=== PATIENT | female | born 1940 | race Caucasian/White ===

== ENCOUNTER → 2017-06-26 | Day surgery (SDC) | payer OTHER ==
[~2017-06-26] VITALS: Ht 154.9 cm; Wt 63.0 kg
[~2017-06-26] MED LIST: 8 HOUR650 MG PO; ADVAIR 100-501 EACH INH; AMOX-CLAV 875-1 EACH PO; BRIMONIDINE TART5 M2 OU; COMBIVENT RESPIM4 GM INH; FUROSEMIDE20 M1 PO; IPRAT-ALBUT 0.5-3 ML INH; MATZIM LA360 M1 PO; VITAMIN B-121000 MC3 PO; VITAMIN D2000 UNIT PO; XARELTO20 M2 PO
--- NOTE | 2017-06-26 12:41 | RADIOLOGY REPORT ---
EXAMINATION: XR PORTABLE CHEST CLINICAL INFORMATION: Additional bronchoscopy. COMPARISON: 06/19/2017 TECHNIQUE: Portable frontal view of the chest was obtained. FINDINGS: Cardiac leads overlie the chest. Clip is noted overlying the previously seen left midlung pulmonary nodule. The nodule is poorly defined on the current study due to overlapping structures. The lungs are well expanded. No new consolidation. No edema or effusion. No pneumothorax. The cardiomediastinal silhouette remains mildly prominent, with a calcified aorta. IMPRESSION: Clip overlies the left midlung pulmonary nodule. No acute pulmonary finding.
--- NOTE | 2017-06-26 17:13 | Operative Report ---
Operative/Inv Procedure Report Surgery Date: 06/26/17 Name of Procedure: Navigational bronchoscopy with fine needle aspirate brushings forceps biopsy bronchoalveolar lavage and fiducial placement Pre-Operative Diagnosis: Left upper lobe lung nodule Post-Operative Diagnosis: Same Estimated Blood Loss: none Surgeon/Bakery Assistant: Po Noonan MD,James Amato Anesthesia: general endotracheal tube Operative/Procedure Note Note: After placement of monitoring lines and induction of general anesthesia survey bronchoscopy was done. There was thick inspissated mucus which was tenacious and a considerable amount of time was spent clearing the airways of this mucus. The navigational system was then registered. The guider catheter was advanced to the lingular segment of the left upper lobe. Multiple passing's of the needle along with the brush were made and the specimens were sent for cytology. Forceps biopsies were taken and were processed in formalin. A bronchoalveolar lavage was done and the fluid was sent for both culture and for cytology. At the end of the procedure a gold fiducial marker was placed adjacent to the nodule for future identification. The airway was inspected and there was no evidence of bleeding. The patient tolerated the procedure well and was brought to recovery room awake and extubated in stable condition. CC: Navarro WINSTON,Alvin Amato MD,Elvis
--- NOTE | 2017-06-27 14:31 | RADIOLOGY REPORT ---
EXAMINATION:\H\ \N\XR CHEST CLINICAL INFORMATION: Left-sided bronchoscopy. COMPARISON: Chest radiograph 06/19/2017 TECHNIQUE: Intraoperative fluoroscopic spot views were provided to Dr. Fontenot to aid in left-sided bronchoscopy. FLUOROSCOPY TIME: 7 minutes 20 seconds TOTAL NUMBER OF IMAGES: 5 FINDINGS: A bronchoscope is identified within a lingular bronchus and a biopsy device is seen deployed multiple times within the mass in the lingula. Refer to operative notes for details. IMPRESSION: Lingula mass biopsy. Refer to operative notes for details.
== END ==
LOC: STS 02:28
DX: R91.1 Solitary pulmonary nodule (principal); J44.9 Chronic obstructive pulmonary disease, unspecified; F17.200 Nicotine dependence, unspecified, uncomplicated; I48.91 Unspecified atrial fibrillation; K21.9 Gastro-esophageal reflux disease without esophagitis; Z79.01 Long term (current) use of anticoagulants
CPT/HCPCS: 1263; 87070; 87075; 87205; 71045; 88305; C9399; J2250

== ENCOUNTER 2017-06-29 18:15 | Inpatient (IN) | payer OTHER ==
[~2017-06-29] VITALS: Ht 154.9 cm; Wt 65.5 kg
--- NOTE | 2017-06-29 18:53 | RADIOLOGY REPORT ---
EXAMINATION: XR PORTABLE CHEST CLINICAL INFORMATION: Shortness of breath, chest pain COMPARISON: 06/26/17 TECHNIQUE: Portable frontal view of the chest was obtained. FINDINGS: Lordotic projection. There is tortuosity of the aorta with calcification in the region of the aortic arch. No change in the right hilum. No new abnormality in the right lung or left upper lung. There is significant opacity occupying the left lower chest with obscuration of the left side of the diaphragm and left hemidiaphragm. The small metallic marker superimposes over the left lower chest. No pneumothorax IMPRESSION: Worsening aeration left lower chest with a small fiducial or tissue marker. Possibilities include pneumonia, or hemorrhage. Follow-up recommended.
--- NOTE | 2017-06-29 19:12 | ED GENERAL ADULT ---
History of Present Illness General Chief Complaint: General Adult Stated Complaint: HIGH FEVER,BODY ACHES,SOB Source: patient, family, old records Exam Limitations: no limitations Reconcile Medications Acetaminophen (8 Hour) 650 MG TABLET.ER 1 TAB PO PRN PAIN (Reported) Amoxicillin/Clavulanate Potass (Amox-Clav 875-125 MG Tablet) 875 MG-125 MG TABLET 1 TAB PO BID ABX (Reported) Brimonidine Tartrate 0.2 % DROPS 1 DROP OU BID BOTH EYES (Reported) Cholecalciferol (Vitamin D3) (Vitamin D) 2,000 UNIT CAPSULE 1 CAP PO DAILY SUPPLEMENT (Reported) Cyanocobalamin (Vitamin B-12) 1,000 MCG TABLET 1 TAB PO DAILY SUPPLEMENT ( Reported) Diltiazem HCl (Matzim LA) 360 MG TAB.ER.24H 1 TAB PO DAILY HEART/BP (Reported ) Fluticasone-Salmeterol (Advair 100-50 Diskus) 100 MCG-50 MCG/DOSE BLST.W.DEV 1 PUF INH BID COPD (Reported) Furosemide 20 MG TABLET 1 TAB PO DAILY DIURETIC (Reported) Ipratropium/Albuterol Sulfate (Iprat-Albut 0.5-3(2.5) MG/3 Ml) 0.5 MG-3 MG (2.5 MG BASE)/3 ML AMPUL.NEB 1 VIAL INH 4XDAILY COPD (Reported) Ipratropium/Albuterol Sulfate (Combivent Respimat Inhal Perry) 20 MCG-100 MCG/ ACTUATION MIST.INHAL 1 PUFF INH BID COPD (Reported) Rivaroxaban (Xarelto) 20 MG TABLET 1 TAB PO DAILY BLOOD THINNER (Reported) with food Triage Note: PT TO ED FOR C/C OF BODY ACHES, PRODUCTIVE COUGH, CHILLS, FEVERS (SUBJECTIVE 103 AT HOME). HAD A BRONCHOSCOPY ON SUNDAY HERE. PT REPORTS FEELING TIRED AND WEAK. PT NOTED TO BE PALE IN TRIAGE. DENIES SOB. Triage Nurses Notes Reviewed? yes Onset: Gradual Duration: day(s): Timing: recent history Injury Environment: home Severity: moderate HPI: 77yo female with hx of COPD, a fib presents to ED complaining of fevers, myalgias, malaise x yesterday. Patient recently had bronchoscopy with Dr. Fontenot on 06/26. Patient called her specialist who prescribed her Augment which she started this AM, has taken one dose. Patient has been taking tyelnol which is effective only temporarily. She reports left sided lateral ribcage pain since broncoscopy which her doctor told her was normal following the procedure. Patient reports a history of PNA in the past. Patient reports hemoptysis since her bronchoscopy. She denies dyspnea, sick contact, urinary symptoms, rash. (Nicole Valadez) Vital Signs & Intake/Output Vital Signs & Intake/Output Vital Signs Date Time Temp Pulse Resp B/P B/P Pulse O2 O2 Flow FiO2 Mean Ox Delivery Rate 06/29 2133 98.2 68 22 125/56 89 Room Air 06/29 1957 Room Air 06/29 1822 98.9 91 15 108/60 90 Room Air Room Air Allergies Coded Allergies: erythromycin base (SEVERE GI UPSET AND BECAME PHYSICALLY ILL 06/29/17) (Preethi WINSTON,Sharif Frankel) Past History Travel History Traveled to [place] past 21 day No Medical History Any Pertinent Medical History? see below for history Cardiovascular: AFIB, CHF Respiratory: COPD Surgical History Surgical History: non-contributory Psychosocial History What is your primary language Japanese Tobacco Use: Quit <30 days ago ETOH Use: occasional use Illicit Drug Use: denies illicit drug use Family History Hx Contributory? No (Nicole Valadez) Review of Systems Review of Systems Constitutional: Reports: see HPI. EENTM: Reports: no symptoms. Respiratory: Reports: see HPI. Cardiovascular: Reports: see HPI. GI: Reports: no symptoms. Genitourinary: Reports: no symptoms. Musculoskeletal: Reports: see HPI. Skin: Reports: no symptoms. Neurological/Psychological: Reports: no symptoms. Hematologic/Endocrine: Reports: no symptoms. Immunologic/Allergic: Reports: no symptoms. All Other Systems: Reviewed and Negative (Nicole Valadez) Physical Exam Physical Exam General Appearance: well developed/nourished, no apparent distress, alert, awake Head: atraumatic, normal appearance Eyes: Bilateral: normal appearance. Ears, Nose, Throat: hearing grossly normal Neck: normal inspection, supple, full range of motion Respiratory: no respiratory distress, bilateral wheezes lung bases Cardiovascular: regular rate/rhythm Peripheral Pulses: 2+ radial (R), 2+ radial (L) Gastrointestinal: normal bowel sounds, soft, non-tender, no organomegaly Back: normal inspection, normal range of motion Extremities: normal inspection, normal range of motion Neurologic/Psych: awake, alert, oriented x 3 Skin: intact, normal color, warm/dry Core Measures ACS in differential dx? Yes CVA/TIA Diagnosis: No Sepsis Present: No Sepsis Focused Exam Completed? No (Jazmyne WHITE,Nicole Enrique) Progress Differential Diagnoses I considered the following diagnoses in my evaluation of the patient: [pneumonia , sepsis, UTI, PE, pulmonary trauma/hemorrhage] Plan of Care: Orders Procedure Date/time Status Nothing by Mouth 06/30 B Active Saline Lock 06/29 2248 Active Misc Message 06/29 2248 Active ED Holding Orders 06/29 2248 Active Admit to inpatient 06/29 2248 Active Vital Signs 06/29 2248 Active Code Status 06/29 2248 Active EKG 06/30 2119 Active BLOOD CULTURE 06/30 1823 Active URINALYSIS 06/30 1823 Active TROPONIN LEVEL 06/29 182 Complete LACTIC ACID 06/29 182 Complete COMPREHENSIVE METABOLIC PANEL 06/29 182 Complete CBC WITHOUT DIFFERENTIAL 06/30 1823 Complete EKG 06/29 181 Active Current Medications Sig/Mal Start time Last Medication Dose Stop Time Status Admin Azithromycin 500 MG ONCE ONE 06/29 2300 UNVr (Zithromax) 06/29 2359 Sodium Chloride 250 ML (Normal Saline 0.9%) Azithromycin 500 MG ONCE ONE 06/29 2130 CAN (Zithromax) 06/29 2229 Sodium Chloride 250 ML (Normal Saline 0.9%) Laboratory Tests 06/29/172123: Lactic Acid Cancelled 06/29/17 1855: Anion Gap 12, Estimated GFR > 60, BUN/Creatinine Ratio 15.0, Glucose 171 H, Lactic Acid 1.9, Calcium 8.9, Total Bilirubin 1.3, AST 22, ALT 20, Alkaline Phosphatase 70, Troponin I < 0.01, Total Protein 6.0 L, Albumin 3.6, Globulin 2.4, Albumin/Globulin Ratio 1.5, CBC w Diff NO MAN DIFF REQ, RBC 4.49, MCV 98.7, MCH 32.9 H, MCHC 33.3, RDW 13.2, MPV 7.6, Gran % 86.3 H, Lymphocytes % 5.0 L, Monocytes % 8.1, Eosinophils % 0.3, Basophils % 0.3, Absolute Granulocytes 16.4 H, Absolute Lymphocytes 1.0 L, Absolute Monocytes 1.6 H, Absolute Eosinophils 0.1, Absolute Basophils 0.1 Microbiology 06/30 1955 BLOOD: Blood Culture - RECD 06/29 1853 BLOOD: Blood Culture - RECD Patient CTA shows no pulmonary embolism, I discussed CT results with radiologist who states VTE negative over the phone. There is suspicion for left sided pneumonia versus hemorrhage. Pneumonia more likely given patient's fevers, leukocytosis of 19, hypoxia. Given these findings patient requires IV antibiotics for her pneumonia, O2 saturation desats to 89% at rest while on room air, supplemental O2 administered. Patient requires further pulmonology consult here in the emergency department given pneumonia following bronchoscopy. She also requires repeat labs. Patient reports GI upset related to erythromycin. These findings were discussed with Dr. Oro who recommends azithromycin and ceftriaxone, patient agrees to azitrho and rocephin abx following discussed with Dr. Oro. Patient may require ID consult for further antibiotic adjustment. Will also require follow up with blood cultures. Case management recommend full admission. Spoke with Dr. Miranda regarding general medicine admission. Diagnostic Imaging: Viewed by Me: Radiology Read, CT Scan. Discussed w/RAD: Radiology Read, CT Scan. Radiology Impression: PATIENT: RADHA MAYA PRESENT AGE: 77 PATIENT ACCOUNT NO: [id number] : 40 LOCATION: [facility] ORDERING PHYSICIAN: Nicole WHITE SERVICE DATE: 06/29/17 EXAM TYPE: CAT - CTA CHEST-PULMONARY EMBOLISM Addendum: The original dictation contains an error. There is no pulmonary embolus. VTE: negative This was discussed with the physician's technical staff assistant caring for the patient at 2145 hours, 06/29/17 Addendum Signed by: Celio Childress MD 06/29/172144 Addendum: The patient received 81 mL of Optiray 320 intravenously Addendum Signed by: Celio Childress MD 06/29/172105 EXAMINATION: CT ANGIOGRAM OF THE CHEST WITH AND WITHOUT CONTRAST (CT PULMONARY ANGIOGRAM FOR PE) CLINICAL INFORMATION: Reason for Study:
Presumptive Dx: R/O PE, PNA, HEMORRHAGE
Signs Symptoms: HYPOXIA /FEVER FOLLOWING BRONCHOSCOPY
COMPARISON: Chest x-ray earlier same day. The report of PET/CT 06/12/17 indicates markedly avid lingular nodule. The patient apparently underwent navigational bronchoscopy on 06/26/17 TECHNIQUE: Prior to contrast administration, noncontrast localization images were obtained. Subsequently, multidetector volumetric imaging was performed from the thoracic inlet to below the diaphragms following the administration of 95 mL Optiray 320 intravenous contrast. No contrast reaction reported. Sagittal, coronal, and MIP oblique sagittal reformatted images were obtained on the CT workstation, uploaded to PACS, and reviewed. Total exam dose-length product 333 mGy-cm. FINDINGS: QUALITY OF STUDY/CONTRAST BOLUS: Satisfactory PULMONARY ARTERIES: No pulmonary embolus demonstrated. The main pulmonary artery is normal caliber. There is no evidence of arterial extravasation in the lingula. The left lower pulmonary veins are somewhat attenuated and not well enhanced. THORACIC AORTA: There is no thoracic aortic aneurysm. There is no aortic dissection demonstrated. There is coronary artery calcification. LUNG: No abnormality the trachea or mainstem bronchi. There is generalized thickening of the interlobular septa. There is underlying centrilobular emphysema. There is dense consolidation in the lingula and left lower lobe. There is a metallic marker for fiducial in the lingula. The site of the previous lingular nodule is obscured. There is volume loss in the left lower lobe. No change in a vague nodular density in the anterior segment left upper lobe (series 2, image 163). PLEURA: There is a trace amount left pleural fluid. There is no pneumothorax. MEDIASTINUM: There are no measurably enlarged mediastinal or hilar lymph nodes. The mediastinum is somewhat shifted toward the left. There is no suspicious abnormality of the esophagus. No evidence of septal bowing or right heart strain. CHEST WALL/AXILLA : No axillary or internal mammary lymphadenopathy. OSSEOUS STRUCTURES: No acute or suspicious osseous abnormality. UPPER ABDOMEN: Slight indistinctness in the region of the adrenal glands and minor perinephric stranding. No suspicious focal mass. Elevation of the left hemidiaphragm. No reflux of contrast into the hepatic veins to suggest elevated right heart pressures. IMPRESSION: There is volume loss and consolidation in the lingula and left lower lobe which could be hemorrhage or pneumonia. There is no pneumothorax. No significant pleural fluid. No pulmonary embolus or active extravasation. Underlying emphysema. Generalized thickening of the interlobular septa. VTE: positive DICTATED BY: Celio Childress MD DATE/TIME DICTATED:06/29/172045 WIRE CHARGER:DANII DATE/TIME TRANSCRIBED:06/29/172045 CONFIDENTIAL, DO NOT COPY WITHOUT APPROPRIATE AUTHORIZATION. <Electronically signed in Other Vendor System> SIGNED BY: Celio Childress MD 06/29/172100 CXR Impression: PATIENT: RADHA MAYA PRESENT AGE: 77 PATIENT ACCOUNT NO: [id number] : 40 LOCATION: [facility] ORDERING PHYSICIAN: Jesse WHITE SERVICE DATE: 06/29/17 EXAM TYPE: RAD - XRY-PORTABLE CHEST XRAY EXAMINATION: XR PORTABLE CHEST CLINICAL INFORMATION: Shortness of breath, chest pain COMPARISON: 06/26/17 TECHNIQUE: Portable frontal view of the chest was obtained. FINDINGS: Lordotic projection. There is tortuosity of the aorta with calcification in the region of the aortic arch. No change in the right hilum. No new abnormality in the right lung or left upper lung. There is significant opacity occupying the left lower chest with obscuration of the left side of the diaphragm and left hemidiaphragm. The small metallic marker superimposes over the left lower chest. No pneumothorax IMPRESSION: Worsening aeration left lower chest with a small fiducial or tissue marker. Possibilities include pneumonia, or hemorrhage. Follow-up recommended. DICTATED BY: Celio Childress MD DATE/TIME DICTATED:06/29/171846 WIRE CHARGER:DANII DATE/TIME TRANSCRIBED:06/29/171846 CONFIDENTIAL, DO NOT COPY WITHOUT APPROPRIATE AUTHORIZATION. <Electronically signed in Other Vendor System> SIGNED BY: Celio Childress MD 06/29/17 185 Initial ED EKG: sinus rhythm @92bpm, nonspecific ST changes (Jazmyne WHITE,Nicole Enrique) Departure Departure Disposition: STILL A PATIENT Condition: Stable Clinical Impression Primary Impression: Pneumonia Qualifiers: Pneumonia type: due to unspecified organism Laterality: left Lung location: lower lobe of lung Qualified Code: J18.1 - Lobar pneumonia, unspecified organism Secondary Impressions: Hypoxia Leukocytosis Qualifiers: Leukocytosis type: unspecified Qualified Code: D72.829 - Elevated white blood cell count, unspecified Referrals: Navarro WINSTON,Alvin John (PCP/Family) Departure Forms: Customer Survey General Discharge Information Admission Note Spoke With: Niko Goins MD Documentation of Exam: Documentation of any treatments & extenuating circumstances including Concerns Regarding Discharge (functional status, medication knowledge or non-compliance, living conditions, etc.) that warrant an admission rather than observation: [ Pneumonia requiring IV antibiotics, supplemental oxygen given hypoxia, repeat labs given leukocytosis, possible infectious disease consult, pulmonology consult, premature discharge medically unsafe] (Nicole Valadez) PA/MEDICAL RECORDS CODER Co-Sign Statement Statement: ED Attending supervision documentation- []x I saw and evaluated the patient. I have also reviewed all the pertinent lab results and diagnostic results. I agree with the findings and the plan of care as documented in the PA's/MEDICAL RECORDS CODER's documentation. 06/29/17, 21:32... pt with pneumonia, hypoxia, sepsis, merits iv abx, 02 support [] I have reviewed the ED Record and agree with the PA's/MEDICAL RECORDS CODER's documentation. [] Additions or exceptions (if any) to the PAs/MEDICAL RECORDS CODER's note and plan are summarized below: [] (Preethi WINSTON,Sharif Frankel) Critical Care Note Critical Care Note Critical Care Time: 30-74 min (Nicole Valadez) (Nicole Valadez)
[2017-06-29 19:22] LABS: ABSOLUTE BASOPHIL COUNT 0.1 /CUMM (0.0-0.2); ABSOLUTE EOSINOPHIL COUNT 0.1 /CUMM (0.0-0.7); ABSOLUTE GRANULOCYTE CT 16.4 /CUMM (1.4-6.5); ABSOLUTE MONOCYTE COUNT 1.6 /CUMM (0.10-0.60); BASOPHIL % 0.3 % (0.0-2.0); EOSINOPHIL % 0.3 % (0-5); HEMATOCRIT 44.3 % (37-47); MEAN CORPUSCULAR HGB 32.9 PG (27.0-31.0); MEAN CORPUSCULAR HGB CONC 33.3 G/DL (33.0-37.0); MEAN CORPUSCULAR VOLUME 98.7 FL (81.0-99.0); MEAN PLATELET VOLUME 7.6 FL (7.4-10.4); PLATELET COUNT 278 /CUMM (130-400); RBC DISTRIBUTION WIDTH 13.2 % (11.5-14.5); RED BLOOD CELL CT 4.49 /CUMM (4.20-5.40); WHITE BLOOD CELL COUNT 19.1 /CUMM (4.8-10.8)
[2017-06-29 19:48] LABS: GRANULOCYTE % 86.3 % (42.2-75.2)
--- NOTE | 2017-06-29 21:01 | CT SCAN REPORT ---
EXAMINATION: CT ANGIOGRAM OF THE CHEST WITH AND WITHOUT CONTRAST (CT PULMONARY ANGIOGRAM FOR PE) CLINICAL INFORMATION: Reason for Study:
Presumptive Dx: R/O PE, PNA, HEMORRHAGE
Signs Symptoms: HYPOXIA/FEVER FOLLOWING BRONCHOSCOPY
COMPARISON: Chest x-ray earlier same day. The report of PET/CT 06/12/17 indicates markedly avid lingular nodule. The patient apparently underwent navigational bronchoscopy on 06/26/17 TECHNIQUE: Prior to contrast administration, noncontrast localization images were obtained. Subsequently, multidetector volumetric imaging was performed from the thoracic inlet to below the diaphragms following the administration of 95 mL Optiray 320 intravenous contrast. No contrast reaction reported. Sagittal, coronal, and MIP oblique sagittal reformatted images were obtained on the CT workstation, uploaded to PACS, and reviewed. Total exam dose-length product 333 mGy-cm. FINDINGS: QUALITY OF STUDY/CONTRAST BOLUS: Satisfactory PULMONARY ARTERIES: No pulmonary embolus demonstrated. The main pulmonary artery is normal caliber. There is no evidence of arterial extravasation in the lingula. The left lower pulmonary veins are somewhat attenuated and not well enhanced. THORACIC AORTA: There is no thoracic aortic aneurysm. There is no aortic dissection demonstrated. There is coronary artery calcification. LUNG: No abnormality the trachea or mainstem bronchi. There is generalized thickening of the interlobular septa. There is underlying centrilobular emphysema. There is dense consolidation in the lingula and left lower lobe. There is a metallic marker for fiducial in the lingula. The site of the previous lingular nodule is obscured. There is volume loss in the left lower lobe. No change in a vague nodular density in the anterior segment left upper lobe (series 2, image 163). PLEURA: There is a trace amount left pleural fluid. There is no pneumothorax. MEDIASTINUM: There are no measurably enlarged mediastinal or hilar lymph nodes. The mediastinum is somewhat shifted toward the left. There is no suspicious abnormality of the esophagus. No evidence of septal bowing or right heart strain. CHEST WALL/AXILLA: No axillary or internal mammary lymphadenopathy. OSSEOUS STRUCTURES: No acute or suspicious osseous abnormality. UPPER ABDOMEN: Slight indistinctness in the region of the adrenal glands and minor perinephric stranding. No suspicious focal mass. Elevation of the left hemidiaphragm. No reflux of contrast into the hepatic veins to suggest elevated right heart pressures. IMPRESSION: There is volume loss and consolidation in the lingula and left lower lobe which could be hemorrhage or pneumonia. There is no pneumothorax. No significant pleural fluid. No pulmonary embolus or active extravasation. Underlying emphysema. Generalized thickening of the interlobular septa. VTE: positive
[2017-06-29] MEDS ORDERED: AMOX-CLAV 875-1 EACH PO (21:54)
[2017-06-29] MEDS ORDERED: IPRAT-ALBUT 0.5-3 ML INH (21:55)
[2017-06-29] MEDS ORDERED: BRIMONIDINE TART5 M2 OU (21:56)
[2017-06-29] MEDS ORDERED: FUROSEMIDE20 M1 PO (21:56)
[2017-06-29] MEDS ORDERED: XARELTO20 M2 PO (21:56)
[2017-06-29] MEDS ORDERED: MATZIM LA360 M1 PO (21:56)
[2017-06-29] MEDS ORDERED: COMBIVENT RESPIM4 GM INH (21:57)
[2017-06-29] MEDS ORDERED: ADVAIR 100-501 EACH INH (21:57)
[2017-06-29] MEDS ORDERED: 8 HOUR650 MG PO (21:58)
[2017-06-29] MEDS ORDERED: VITAMIN B-121000 MC3 PO (21:59)
[2017-06-29] MEDS ORDERED: VITAMIN D2000 UNIT PO (21:59)
--- NOTE | 2017-06-29 23:03 | History & Physical ---
Ciro WINSTON,[facility] 06/29/17 4375: General Information and HPI MD Statement: I have seen and personally examined RADHA MAYA and documented this H&P. The patient is a 77 year old F who presented with a patient stated chief complaint of [fevers, myalgias, malaise]. Source of Information: patient Exam Limitations: no limitations History of Present Illness: The patient is a 77 year-old female with past medical history of COPD not on home oxygen , atrial fibrillation on Xarelto and Cardizem Patient patient presented to [facility] on 06/29 with a complaint of body aches, productive cough, chills and fevers past 2 days. The patient underwent Navigational bronchoscopy with fine needle aspirate brushings forceps biopsy bronchoalveolar lavage and fiducial placement for left upper lobe lung nodule on 06/26 by . The biopsy results were negative for malignancy. The patient started developing fever on which was a low-grade fever up to 99. She called her lung doctor or the doctor who did the bronchoscopy (pt unsure) who decided to monitor and not do anything at that point. The patient's started spiking high-grade fever up to 103, she was started her on Augmentin. She has taken 1 dose of Augmentin without relief of symptoms. She has also tried Tylenol with significant only temporarily. Patient's particular visit to [facility]. the patient has been having a cough which is chronic. However now she has sputum production yellowish in color. She is also reported some blood in the sputum since the procedure was done. Patient denies any sick contacts, travel history. She denies any recent hospital stay visit to the wound center or infusion center. Patient has one and half pack a 50 year smoking history. Allergies/Medications Allergies: Coded Allergies: erythromycin base (SEVERE GI UPSET AND BECAME PHYSICALLY ILL 06/29/17) Home Med list Acetaminophen (8 Hour) 650 MG TABLET.ER 1 TAB PO PRN PAIN (Reported) Amoxicillin/Clavulanate Potass (Amox-Clav 875-125 MG Tablet) 875 MG-125 MG TABLET 1 TAB PO BID ABX (Reported) Brimonidine Tartrate 0.2 % DROPS 1 DROP OU BID BOTH EYES (Reported) Cholecalciferol (Vitamin D3) (Vitamin D) 2,000 UNIT CAPSULE 1 CAP PO DAILY SUPPLEMENT (Reported) Cyanocobalamin (Vitamin B-12) 1,000 MCG TABLET 1 TAB PO DAILY SUPPLEMENT ( Reported) Diltiazem HCl (Matzim [place]) 360 MG TAB.ER.24H 1 TAB PO DAILY HEART/BP (Reported ) Fluticasone-Salmeterol (Advair 100-50 Diskus) 100 MCG-50 MCG/DOSE BLST.W.DEV 1 PUF INH BID COPD (Reported) Furosemide 20 MG TABLET 1 TAB PO DAILY DIURETIC (Reported) Ipratropium/Albuterol Sulfate (Iprat-Albut 0.5-3(2.5) MG/3 Ml) 0.5 MG-3 MG (2.5 MG BASE)/3 ML AMPUL.NEB 1 VIAL INH 4XDAILY COPD (Reported) Ipratropium/Albuterol Sulfate (Combivent Respimat Inhal [place]) 20 MCG-100 MCG/ ACTUATION MIST.INHAL 1 PUFF INH BID COPD (Reported) Rivaroxaban (Xarelto) 20 MG TABLET 1 TAB PO DAILY BLOOD THINNER (Reported) with food Past History Travel History Traveled to [place] past 21 day No Medical History Cardiovascular: AFIB, CHF Respiratory: COPD Surgical History Surgical History: non-contributory Past Family/Social History Psychosocial History Where do you live? Home Who Do You Live With? self Services at Home: None Primary Language: Burundian Smoking Status: Former Smoker ETOH Use: occasional use Illicit Drug Use: denies illicit drug use Functional Ability ADLs Independent: dressing, eating, toileting, bathing. Ambulation: independent IADLs Independent: shopping, housework, finances, food prep, telephone, transportation , medication admin. Review of Systems Review of Systems Constitutional: Reports: see HPI. Exam & Diagnostic Data Last 24 Hrs of Vital Signs/I&O Vital Signs Date Time Temp Pulse Resp B/P B/P Pulse O2 O2 Flow FiO2 Mean Ox Delivery Rate 06/30 0156 95 Nasal 2.0L Cannula 06/30 0132 99.4 87 20 122/68 95 Nasal 2.0L Cannula 06/30 0000 95 Nasal 2.0L Cannula 06/29 2352 97.4 97 18 126/58 94 Nasal 2.0L Cannula 06/29 2134 98.2 68 22 125/56 89 Room Air 06/298 Room Air 06/29 1822 98.9 91 15 108/60 90 Room Air Room Air Intake & Output 06/30 0800 06/30 0000 06/29 1600 Intake Total Output Total 350 Balance -350 Output, Urine 350 Patient 138 lb 138 lb Weight Weight Reported by Patient Reported by Patient Measurement Method Physical Exam General Appearance Alert, Oriented X3, Cooperative Skin No Rashes HEENT Atraumatic Cardiovascular Normal S1, Normal S2 Lungs decreased breath sounds Abdomen Normal Bowel Sounds, Soft, No Tenderness Neurological Normal Speech Extremities No Cyanosis, No Edema Last 24 Hrs of Labs/Jake: Laboratory Tests 06/30/17 0130: Urine Color STRAW, Urine Clarity CLEAR, Urine pH 6.0, Ur Specific [place] <= 1.005, Urine Protein NEG, Urine Ketones NEG, Urine Nitrite NEG, Urine Bilirubin NEG, Urine Urobilinogen 1.0, Ur Leukocyte Esterase NEG, Ur Microscopic EXAM NOT REQUIRED, Urine Hemoglobin NEG, Urine Glucose NEG 06/29/172123: Lactic Acid Cancelled 06/29/171854: Anion Gap 12, Estimated GFR > 60, BUN/Creatinine Ratio 15.0, Glucose 171 H, Lactic Acid 1.9, Calcium 8.9, Total Bilirubin 1.3, AST 22, ALT 20, Alkaline Phosphatase 70, Troponin I < 0.01, Total Protein 6.0 L, Albumin 3.6, Globulin 2.4, Albumin/Globulin Ratio 1.5, CBC w Diff NO MAN DIFF REQ, RBC 4.49, MCV 98.7, MCH 32.9 H, MCHC 33.3, RDW 13.2, MPV 7.6, Gran % 86.3 H, Lymphocytes % 5.0 L, Monocytes % 8.1, Eosinophils % 0.3, Basophils % 0.3, Absolute Granulocytes 16.4 H, Absolute Lymphocytes 1.0 L, Absolute Monocytes 1.6 H, Absolute Eosinophils 0.1, Absolute Basophils 0.1 Microbiology 06/30 2319 LOWER RESP: Respiratory Culture - COLB 06/30 2319 LOWER RESP: Gram Stain - COLB 06/30 1955 BLOOD: Blood Culture - RECD 06/29 1853 BLOOD: Blood Culture - RECD Diagnostic Data CXR Results IMPRESSION: Worsening aeration left lower chest with a small fiducial or tissue marker. Possibilities include pneumonia, or hemorrhage. Follow-up recommended. Other Results CTA CHEST IMPRESSION: There is volume loss and consolidation in the lingula and left lower lobe which could be hemorrhage or pneumonia. There is no pneumothorax. No significant pleural fluid. No pulmonary embolus or active extravasation. Underlying emphysema. Generalized thickening of the interlobular septa. VTE: positive Assessment/Plan Assessment: The patient is a 77-year-old female with past medical history of COPD not on home oxygen , atrial fibrillation on Xarelto and Cardizem Patient patient presented to [facility] ED on 06/29 with a complaint of body aches, productive cough, chills and fevers past 2 days. Vitals on presentation wn Admission labs are significant for leukocytosis of 19.1, hyponatremia 131 Imaging findings dictated above The patient has been admitted to general medicine floor for evaluation of following conditions #Community-acquired pneumonia The patient's presentation of leukocytosis fever productive cough and opacity on image is consistent with pneumonia. However CTA cannot distinguish between hemorrhage or consolidation so that should also be kept in mind since she is status post bronchoscopy. -Monitor fever and WBC count -Monitor vitals every shift -Urine strep antigen -Urine Legionella antigen -Blood cultures -Respiratory sputum culture -Ceftriaxone and azithromycin -Oxygen supplementation to maintain oxygen saturation above 92% -Pulmonology consult in the morning #Hyponatremia Patient appears to be dry and reports poor oral intake since past few days. She can be hypovolemic hyponatremia. However because of lung pathology there might be a component of SIADH going on -Check serum osmolality, urine osmolality and urine lites -For now we are going to hydrate the patient with normal saline #History of paroxysmal atrial fibrillation -Continue Cardizem -Xarelto on hold in setting of hemoptysis, will ask Pulm if it safe to resume anticoagulation -Repeat EKG and troponins morning #History of COPD -Oxygen supplementation -DuoNebc Regular diet/DVT prophylaxis with ALPs ONLY/Full code As Ranked By This Provider Problem List: 1. Pneumonia Qualifiers Pneumonia type: due to unspecified organism Laterality: left Lung location: lower lobe of lung Qualified Code: J18.1 - Lobar pneumonia, unspecified organism 2. Leukocytosis Qualifiers Leukocytosis type: unspecified Qualified Code: D72.829 - Elevated white blood cell count, unspecified Core Measures/Misc (10/22) Acute Coronary Syndrome ACS Diagnosis: No Congestive Heart Failure Congestive Heart Failure Diagnosis No Cerebrovascular Accident CVA/TIA Diagnosis: No VTE (View Protocol) VTE Risk Factors Age>40 No Mechanical VTE Prophylaxis d/t N/A MechProphylax Ordered No VTE Pharm Prophylaxis d/t NA PharmProphylax ordered Sepsis (View protocol) Sepsis Present: Yes If YES complete Sepsis Event Note If YES complete Sepsis Event Note Geri Cadena 06/30/17 0007: Core Measures/Misc (10/22) Sepsis (View protocol) If YES complete Sepsis Event Note If YES complete Sepsis Event Note Resident Review Statement Other Findings: Patient is 77 YO female with PMH as above came with chief complain of fever and blood tinged productive cough. Patient had a bronchoscopy done on 06/[address] Fontenot for left lingular nodule with biopsies which were negative for cancer. Patient was accompanied by her daughter in the room and daughter reported that she developed a low grade fever on 06/28 and this morning she had a fever of 103. After the bronchoscopy she was advised to take one dose of Augmentin which she did. After developing fever on Sunday morning 06/29, she was prescribed Augmentin and she took one dose before coming to the hospital. Her fever is accompanied with blood tinged cough, pleuritic chest pain, and dyspnea on exertion. She is not on any oxygen at home and smokes 1.5 packs of cigarettes a day. Labs and vitals as above Imaging as above Plan: Will admit her to for possible iatrogenic PNA due to bronchoscopy. Will continue her on ceftriaxone and azithromycin. Reportedly patient is allergic to oral erythromycin base but tolerated IV azithromycin well in ER. Will monitor fevers, repeat cbc bep in am. Pulm consult in am. TRC nebs as needed. Patient seems to be in paroxysmal a fib and is on xarelto, will hold her xarelto for now as she is coughing up blood and monitor closely. Will repeat EKG in am and consider cardio to advice regarding anticoagulation. Patient looks dry on physical examination, possibly hypovolemic hyponatremia, will hydrate her with NS. DVT ppx : ALPS Patient is FC. Buster WINSTON, [facility] 06/30/17 0540: Core Measures/Misc (10/22) Sepsis (View protocol) If YES complete Sepsis Event Note If YES complete Sepsis Event Note Attending MD Review Statement Attending Statement Attending MD Statement: examined this patient, discuss w/resident/PA/PAN PULLER, agreed w/resident/PA/PAN PULLER, discussed with family, reviewed images, amended to note Attending Assessment/Plan: 77 yo F smoker with h/o Afib on xarelto, HTN, COPD, who underwent bronchoscopy by Dr. Fontenot on June 26 for lingular mass suspicious for malignancy (biopsy returned negative), is here for evaluation of fever, malaise, weakness, exertional dyspnea and cough productive of yellow phlegm that is blood streaked. C/o left lateral pleuritic chest pain. Symptoms started 2 days post procedure with low grade fever, this trended up to 103 one day prior to admission for which Dr. Fontenot prescribed Augmentin which patient started taking this morning. However, her symptoms did not improve so she came to the ER. Patient's department assistant is Dr. Chin (Primed). Vitals: Tmax 99.4, HR 80-90's, BP 122/68, sats 89% RA --> 94% on 2L. Exam: AAO, in mild respiratory distress, mucosa is dry, Chest reduced air entry at bases, with rhonchi to left base, Heart S1S2 regular, LE: no edema. Skin warm and dry, Capillary refill ~ 2 secs. Labs: WBC 19.1, Na 131, glucose 171, trop negative. UA clear. CXR: worsening aeration left lower chest with a small fiducial or tissue marker, possibilities include pneumonia or hemorrhage. CTA chest: no PE, there is volume loss and consolidation in lingula and left lower lobe which could be hemorrhage and pneumonia, no pleural effusion. Emphysema++. EKG: Afib, no acute changes. Assessment and plan: 1. Acute hypoxic respiratory failure and sepsis 2. Left lower lobe consolidation pneumonia, cannot rule out hemorrhage 3. Status post bronchoscopy for lingular mass concerning for malignancy 4. Afib on xarelto 5. Severe COPD 6. Essential hypertension - Admit to General medicine - TRC nebs - Panculture, urine legionella and strep Ag - IV ceftriaxone and azithro - Pulm consult (Dr. Amato) - Gentle hydration - Work up hyponatremia rule out SIADH - Hold xarelto as patient has been having hemoptysis - Repeat EKG and troponin AM - Resume cardizem, lasix and eye drops - Smoking cessation counseling, nicotine patch DVT ppx Alps, Full code.
[2017-06-30 01:32] VITALS: BP 122/68
--- NOTE | 2017-06-30 05:16 | PN- Housestaff ---
See Addendum Subjective Follow-up For: CAP Subjective: Seen and examined. Resting comfortably. Continues to have cough with sputum production. He was extremely agitated because of delay and wait in [facility] ED Review of Systems Constitutional: Reports: see HPI. Objective Last 24 Hrs of Vital Signs/I&O Vital Signs Date Time Temp Pulse Resp B/P B/P Pulse O2 O2 Flow FiO2 Mean Ox Delivery Rate 06/30 0620 99.5 96 20 118/66 91 Nasal 2.0L Cannula 06/30 0156 95 Nasal 2.0L Cannula 06/30 0132 99.4 87 20 122/68 95 Nasal 2.0L Cannula 06/30 0000 95 Nasal 2.0L Cannula 06/29 2352 97.4 97 18 126/58 94 Nasal 2.0L Cannula 06/29 2134 98.2 68 22 125/56 89 Room Air 06/29 1958 Room Air 06/29 1822 98.9 91 15 108/60 90 Room Air Room Air Intake & Output 06/30 1600 06/30 0800 06/30 0000 Intake Total 487.5 Output Total 950 Balance -462.5 Intake, IV 487.5 Number 0 Bowel Movements Output, Urine 950 Patient 138 lb 138 lb Weight Weight Reported by Patient Reported by Patient Measurement Method Physical Exam General Appearance: Alert, Oriented X3, Cooperative Cardiovascular: Normal S1, Normal S2 Lungs: decreased breath sounds Abdomen: Normal Bowel Sounds, Soft, No Tenderness Neurological: Normal Speech Current Medications: Current Medications Sig/Mal Start time Last Medication Dose Route Stop Time Status Admin Acetaminophen 650 MG Q6P PRN 06/29 2345 AC 06/30 PO 0209 Acetaminophen 0 .STK-MED ONE 06/30 2131 DC IV Acetaminophen 1,000 MG ONCE ONE 06/29 2129 DC 06/29 N/A 1 UNIT IV 06/30 2143 2131 Azithromycin 500 MG DAILY 06/30 220 AC Sodium Chloride 250 ML IV Azithromycin 500 MG DAILY 06/30 09 CAN Sodium Chloride 250 ML IV Azithromycin 500 MG ONCE ONE 06/29 2300 DC 06/29 Sodium Chloride 250 ML IV 06/29 2359 2319 Azithromycin 500 MG ONCE ONE 06/29 213 CAN Sodium Chloride 250 ML IV 06/29 2229 Brimonidine Tartrate 1 GTT BID 06/30 0100 AC OPH Budesonide/ 2 PUF BID 06/30 010 AC Formoterol Fumarate INH Ceftriaxone Sodium 1,000 MG DAILY 06/30 2199 AC IV Ceftriaxone Sodium 0 .STK-MED ONE 06/29 2202 DC .ROUTE Ceftriaxone Sodium 1,000 MG ONCE ONE 06/29 2129 DC 06/29 IV 06/29 Diltiazem HCl 360 MG DAILY 06/30 09 AC PO Furosemide 20 MG DAILY 06/30 09 AC PO Sodium Chloride 1,000 ML Q13H 06/30 0030 AC 06/30 IV 06/30 1329 0227 Last 24 Hrs of Lab/Jake Results Last 24 Hrs of Labs/Mics: Laboratory Tests 06/30/17 013: Urine Color STRAW, Urine Clarity CLEAR, Urine pH 6.0, Ur Specific [place] <= 1.005, Urine Protein NEG, Urine Ketones NEG, Urine Nitrite NEG, Urine Bilirubin NEG, Urine Urobilinogen 1.0, Ur Leukocyte Esterase NEG, Ur Microscopic EXAM NOT REQUIRED, Urine Hemoglobin NEG, Urine Glucose NEG 06/30/17 013: Urine Osmolality 152 L, Ur Random Creatinine 22.1, Ur Random Sodium 9 L, Ur Random Potassium 9.4, Fraction Sodium Excret 0.2 06/29/172123: Lactic Acid Cancelled 06/29/17 1855: Anion Gap 12, Estimated GFR > 60, BUN/Creatinine Ratio 15.0, Glucose 171 H, Lactic Acid 1.9, Calcium 8.9, Total Bilirubin 1.3, AST 22, ALT 20, Alkaline Phosphatase 70, Troponin I < 0.01, Total Protein 6.0 L, Albumin 3.6, Globulin 2.4, Albumin/Globulin Ratio 1.5, CBC w Diff NO MAN DIFF REQ, RBC 4.49, MCV 98.7, MCH 32.9 H, MCHC 33.3, RDW 13.2, MPV 7.6, Gran % 86.3 H, Lymphocytes % 5.0 L, Monocytes % 8.1, Eosinophils % 0.3, Basophils % 0.3, Absolute Granulocytes 16.4 H, Absolute Lymphocytes 1.0 L, Absolute Monocytes 1.6 H, Absolute Eosinophils 0.1, Absolute Basophils 0.1 Microbiology 06/30 129 URINE ROUT: Legionella Antigen - COMP 06/30 129 URINE ROUT: Streptococcus pneumoniae Antigen (M - COMP 06/30 2319 LOWER RESP: Respiratory Culture - COLB 05/25 2320 LOWER RESP: Gram Stain - COLB 06/30 1955 BLOOD: Blood Culture - RECD 06/29 1853 BLOOD: Blood Culture - RECD Assessment/Plan Assessment: The patient is a 2-year-old female with past medical history of COPD not on home oxygen , atrial fibrillation on Xarelto and Cardizem Patient patient presented to [facility] on 06/29 with a complaint of body aches, productive cough, chills and fevers past 2 days. The patient has been admitted to general medicine floor for continued evaluation for following conditions #Community-acquired pneumonia The patient's presentation of leukocytosis fever productive cough and opacity on image he sees consistent with pneumonia. However CTA cannot distinguish between hemorrhage or consolidation so that should also be kept in mind since she is status post bronchoscopy held on the list of differentials. -Monitor fever and WBC count -Monitor vitals every shift -Urine strep antigen pending -Urine Legionella antigen pending -Blood cultures pending -Respiratory sputum culture pending -Ceftriaxone and azithromycin -Oxygen supplementation to maintain oxygen saturation above 92% -Pulmonology consult will be palced today #Xarelto Hyponatremia Patient appears to be dry and reports poor oral intake since past few days. He can be hypovolemic hyponatremia. We are going to hydrate for now. However because of lung pathology that might be a component of SIADH going on - serum osmolality, urine osmolality and urine lites pending -For now we are going to hydrate the patient to normal saline #History of paroxysmal atrial fibrillation -Continue Cardizem -Xarelto on hold in setting of hemoptysis, will ask Pulm if it safe to resume anticoagulation -Repeat EKG and troponins morning #History of COPD -Oxygen supplementation -DuoNebc Regular diet/DVT prophylaxis with ALPs ONLY/Full code Problem List: 1. Hypoxia 2. Pneumonia Pain Ratin Pain Location: nonr Pain Goal: Pain 4 or less Pain Plan: prn Tomorrow's Labs & Rationales: cbc bep
--- NOTE | 2017-06-30 05:42 | Admission Certification ---
Admission Certification Certification Statement - As attending physician, I certify that at the time of - admission, based on clinical presentation, severity of - symptoms, need for further diagnostic testing and - therapeutic interventions, and risk of adverse outcomes - without in-hospital treatment, in my clinical assessment, - this patient requires an acute hospital stay for a minimum - of two nights or longer. I have also considered psychsocial - factors such as support system, advanced age, financial - issues, cognitive issues, and failed out-patient treatments, - past re-admission history, safety of patient, and lack of - compliance as applicable. Specific rationale supporting this admission is: Acute hypoxic respiratory failure, sepsis, left lower lobe pneumonia vs. hemorrhage, status post bronchoscopy.
[2017-06-30 06:20] VITALS: BP 118/66
[2017-06-30 08:44] LABS: ABSOLUTE BASOPHIL COUNT 0 /CUMM (0.0-0.2); ABSOLUTE EOSINOPHIL COUNT 0.1 /CUMM (0.0-0.7); ABSOLUTE GRANULOCYTE CT 13.4 /CUMM (1.4-6.5); ABSOLUTE LYMPH COUNT 0.7 /CUMM (1.2-3.4); BASOPHIL % 0.1 % (0.0-2.0); EOSINOPHIL % 0.7 % (0-5); HEMATOCRIT 43.2 % (37-47); MEAN CORPUSCULAR HGB 33.2 PG (27.0-31.0); MEAN CORPUSCULAR HGB CONC 33.6 G/DL (33.0-37.0); MEAN CORPUSCULAR VOLUME 98.8 FL (81.0-99.0); MEAN PLATELET VOLUME 7.5 FL (7.4-10.4); PLATELET COUNT 258 /CUMM (130-400); RBC DISTRIBUTION WIDTH 13.3 % (11.5-14.5); RED BLOOD CELL CT 4.38 /CUMM (4.20-5.40); WHITE BLOOD CELL COUNT 15.2 /CUMM (4.8-10.8)
[2017-06-30 10:26] LABS: GRANULOCYTE % 88.2 % (42.2-75.2)
[2017-06-30 14:22] VITALS: BP 130/80
--- NOTE | 2017-06-30 15:14 | Cons- Infect Disease ---
General Information and HPI Consulting Request Date of Consult: 06/30/17 Requested By: Buster WINSTON,Niko Reason for Consult: abx advice Source of Information: patient, primary team Exam Limitations: clinical condition History of Present Illness: 77-year-old female with past medical history of COPD not on home oxygen , atrial fibrillation on Xarelto and Cardizem presented to [facility] on 06/29 with a complaint of body aches, productive cough, chills and fevers past 2 days. The patient underwent bronchoscopy with fine needle aspirate brushings forceps biopsy bronchoalveolar lavage and fiducial placement for left upper lobe lung nodule on 06/[address] Jarquin. The biopsy results were negative for malignancy. The patient started developing fever on which was a low-grade temp up to 99. She called her lung doctor or the doctor who did the bronchoscopy (pt unsure) who decided to monitor and not related to anything at that point. Then the patient did spike high-grade fever up to 103, she was started her on Augmentin. She has taken 1 dose of Augmentin without relief of symptoms. She has also tried Tylenol with significant only temporarily. She reports cough, bringing up yellow sputum production; at times blood tinged post bronchscopy Patient denies any sick contacts. She has one and half pack a 50 year smoking history. Allergies/Medications Allergies: Coded Allergies: erythromycin base (SEVERE GI UPSET AND BECAME PHYSICALLY ILL 06/29/17) Home Med List: Acetaminophen (8 Hour) 650 MG TABLET.ER 1 TAB PO PRN PAIN (Reported) Amoxicillin/Clavulanate Potass (Amox-Clav 875-125 MG Tablet) 875 MG-125 MG TABLET 1 TAB PO BID ABX (Reported) Brimonidine Tartrate 0.2 % DROPS 1 DROP OU BID BOTH EYES (Reported) Cholecalciferol (Vitamin D3) (Vitamin D) 2,000 UNIT CAPSULE 1 CAP PO DAILY SUPPLEMENT (Reported) Cyanocobalamin (Vitamin B-12) 1,000 MCG TABLET 1 TAB PO DAILY SUPPLEMENT ( Reported) Diltiazem HCl (Matzim LA) 360 MG TAB.ER.24H 1 TAB PO DAILY HEART/BP (Reported ) Fluticasone-Salmeterol (Advair 100-50 Diskus) 100 MCG-50 MCG/DOSE BLST.W.DEV 1 PUF INH BID COPD (Reported) Furosemide 20 MG TABLET 1 TAB PO DAILY DIURETIC (Reported) Ipratropium/Albuterol Sulfate (Iprat-Albut 0.5-3(2.5) MG/3 Ml) 0.5 MG-3 MG (2.5 MG BASE)/3 ML AMPUL.NEB 1 VIAL INH 4XDAILY COPD (Reported) Ipratropium/Albuterol Sulfate (Combivent Respimat Inhal [place]) 20 MCG-100 MCG/ ACTUATION MIST.INHAL 1 PUFF INH BID COPD (Reported) Rivaroxaban (Xarelto) 20 MG TABLET 1 TAB PO DAILY BLOOD THINNER (Reported) with food Current Medications: Current Medications Sig/Mal Start time Last Medication Dose Route Stop Time Status Admin Acetaminophen 650 MG .STK-MED ONE 06/30 205 DC PO 06/30 020 Acetaminophen 650 MG Q6P PRN 06/29 2345 AC 06/30 PO 0209 Acetaminophen 0 .STK-MED ONE 06/30 2131 DC IV Acetaminophen 1,000 MG ONCE ONE 06/29 2129 WI 06/29 N/A 1 UNIT IV 06/29 2144 2131 Albuterol Sulfate 3 ML TID 06/30 1400 AC 06/30 INH 1141 Azithromycin 500 MG DAILY 06/30 2199 AC Sodium Chloride 250 ML IV Azithromycin 500 MG DAILY 06/30 899 CAN Sodium Chloride 250 ML IV Azithromycin 500 MG ONCE ONE 06/29 2300 DC 06/29 Sodium Chloride 250 ML IV 06/29 2359 2319 Azithromycin 500 MG ONCE ONE 06/29 2129 CAN Sodium Chloride 250 ML IV 06/29 2229 Brimonidine Tartrate 1 GTT BID 06/30 0100 AC 06/30 OPH 0836 Budesonide/ 2 PUF BID 06/30 0101 AC 06/30 Formoterol Fumarate INH 0838 Ceftriaxone Sodium 1,000 MG DAILY 06/30 2199 AC IV Ceftriaxone Sodium 0 .STK-MED ONE 06/29 2202 DC .ROUTE Ceftriaxone Sodium 1,000 MG ONCE ONE 06/29 2129 DC 06/29 IV 06/29 2130 2259 Diltiazem HCl 360 MG DAILY 06/30 09 AC 06/30 PO 0838 Furosemide 20 MG DAILY 06/30 09 AC 06/30 PO 0839 Ipratropium [place] 2.5 ML TID 06/30 1400 AC 06/30 INH 1142 Sodium Chloride 1,000 ML Q13H 06/30 0030 DC 06/30 IV 06/30 1329 0227 Vancomycin HCl 1,000 MG DAILY 06/30 1145 AC 06/30 Sodium Chloride 250 ML IV 1303 Past History Travel History Traveled to [place] past 21 day No Medical History Neurological: NONE EENT: NONE Cardiovascular: AFIB, CHF Respiratory: COPD Gastrointestinal: NONE Hepatic: NONE Renal: NONE Musculoskeletal: NONE Psychiatric: NONE Endocrine: NONE Blood Disorders: NONE Cancer(s): NONE BASEBALL CLUB MANAGER/Reproductive: NONE History of MRSA: No History of VRE: No History of CDIFF: No Isolation History: Standard Surgical History Surgical History: non-contributory Psychosocial History Where Do You Live? Home Who Do You Live With? self Services at Home: None Primary Language: Kazakh Smoking Status: Former Smoker ETOH Use: occasional use Illicit Drug Use: denies illicit drug use Functional Ability ADLs Independent: dressing, eating, toileting, bathing. Ambulation: independent IADLs Independent: shopping, housework, finances, food prep, telephone, transportation , medication admin. Review of Systems Comments 12 points reviewed as noted, otherwise negative. Exam & Diagnostic Data Last 24 Hrs of Vital Signs/I&O Vital Signs Date Time Temp Pulse Resp B/P B/P Pulse O2 O2 Flow FiO2 Mean Ox Delivery Rate 06/30 1422 97.2 82 18 130/80 93 Room Air 06/30 1209 94 Nasal 2.0L Cannula 06/30 1101 Nasal 2.0L Cannula 06/30 0800 94 Nasal 2.0L Cannula 06/30 0620 99.5 96 20 118/66 91 Nasal 2.0L Cannula 06/30 0156 95 Nasal 2.0L Cannula 06/30 0132 99.4 87 20 122/68 95 Nasal 2.0L Cannula 06/30 0000 95 Nasal 2.0L Cannula 06/29 2352 97.4 97 18 126/58 94 Nasal 2.0L Cannula 06/29 2134 98.2 68 22 125/56 89 Room Air 06/29 1958 Room Air 06/29 1822 98.9 91 15 108/60 90 Room Air Room Air Intake & Output 06/30 1600 06/30 0800 06/30 0000 Intake Total 1190 487.5 Output Total 100 950 Balance 1090 -462.5 Intake, IV 710 487.5 Intake, Oral 480 Number 1 0 Bowel Movements Output, Urine 100 950 Patient 138 lb 138 lb Weight Weight Reported by Patient Reported by Patient Measurement Method Physical Exam Other Physical Findings: General Appearance: Alert, Oriented X3, Cooperative Cardiovascular: Normal S1, Normal S2 Lungs: decreased breath sounds Abdomen: Normal Bowel Sounds, Soft, No Tenderness Neurological: Normal Speech Last 24 Hours of Lab Results: Laboratory Tests 06/30 06/30 1150 0810 Chemistry Sodium (137 - 145 mmol/L) 138 Potassium (3.5 - 5.1 mmol/L) 4.2 Chloride (98 - 107 mmol/L) 99 Carbon Dioxide (22 - 30 mmol/L) 30 Anion Gap (5 - 16) 10 BUN (7 - 17 mg/dL) 11 Creatinine (0.5 - 1.0 mg/dL) 0.7 Estimated GFR (>60 ml/min) > 60 BUN/Creatinine Ratio (7 - 25 %) 15.7 Troponin I (< 0.11 ng/ml) < 0.01 < 0.01 Hematology CBC w Diff NO MAN DIFF REQ WBC (4.8 - 10.8 /CUMM) 15.2 H RBC (4.20 - 5.40 /CUMM) 4.38 Hgb (12.0 - 16.0 G/DL) 14.5 Hct (37 - 47 %) 43.2 MCV (81.0 - 99.0 FL) 98.8 MCH (27.0 - 31.0 PG) 33.2 H MCHC (33.0 - 37.0 G/DL) 33.6 RDW (11.5 - 14.5 %) 13.3 Plt Count (130 - 400 /CUMM) 258 MPV (7.4 - 10.4 FL) 7.5 Gran % (42.2 - 75.2 %) 88.2 H Lymphocytes % (20.5 - 51.1 %) 4.6 L Monocytes % (1.7 - 9.3 %) 6.4 Eosinophils % (0 - 5 %) 0.7 Basophils % (0.0 - 2.0 %) 0.1 Absolute Granulocytes (1.4 - 6.5 /CUMM) 13.4 H Absolute Lymphocytes (1.2 - 3.4 /CUMM) 0.7 L Absolute Monocytes (0.10 - 0.60 /CUMM) 1.0 H Absolute Eosinophils (0.0 - 0.7 /CUMM) 0.1 Absolute Basophils (0.0 - 0.2 /CUMM) 0 06/30 06/30 06/29 0130 0130 2124 Chemistry Lactic Acid Cancelled Urines Urine Color (YEL,AMB,STR) STRAW Urine Clarity (CLEAR) CLEAR Urine pH (5.0 - 8.0) 6.0 Ur Specific Upper Tract (1.001 - 1.035) <= 1.005 Urine Protein (NEG,<30 MG/DL) NEG Urine Ketones (NEG) NEG Urine Nitrite (NEG) NEG Urine Bilirubin (NEG) NEG Urine Urobilinogen (0.1 - 1.0 EU/dl) 1.0 Ur Leukocyte Esterase (NEG) NEG Ur Microscopic EXAM NOT REQUIRED Urine Hemoglobin (NEG) NEG Urine Osmolality (300 - 1000 MOSM/KG) 152 L Ur Random Creatinine (mg/dL) 22.1 Ur Random Sodium (30 - 90 mmol/L) 9 L Ur Random Potassium (mmol/L) 9.4 Fraction Sodium Excret (<1% %) 0.2 Urine Glucose (N MG/DL) NEG 06/29 1854 Chemistry Sodium (137 - 145 mmol/L) 131 L Potassium (3.5 - 5.1 mmol/L) 3.6 Chloride (98 - 107 mmol/L) 95 L Carbon Dioxide (22 - 30 mmol/L) 24 Anion Gap (5 - 16) 12 BUN (7 - 17 mg/dL) 12 Creatinine (0.5 - 1.0 mg/dL) 0.8 Estimated GFR (>60 ml/min) > 60 BUN/Creatinine Ratio (7 - 25 %) 15.0 Glucose (65 - 99 mg/dL) 171 H Lactic Acid (0.7 - 2.1 mmol/L) 1.9 Calcium (8.4 - 10.2 mg/dL) 8.9 Total Bilirubin (0.2 - 1.3 mg/dL) 1.3 AST (14 - 36 U/L) 22 ALT (9 - 52 U/L) 20 Alkaline Phosphatase (<127 U/L) 70 Troponin I (< 0.11 ng/ml) < 0.01 Total Protein (6.3 - 8.2 g/dL) 6.0 L Albumin (3.5 - 5.0 g/dL) 3.6 Globulin (1.9 - 4.2 gm/dL) 2.4 Albumin/Globulin Ratio (1.1 - 2.2 %) 1.5 Hematology CBC w Diff NO MAN DIFF REQ WBC (4.8 - 10.8 /CUMM) 19.1 H RBC (4.20 - 5.40 /CUMM) 4.49 Hgb (12.0 - 16.0 G/DL) 14.8 Hct (37 - 47 %) 44.3 MCV (81.0 - 99.0 FL) 98.7 MCH (27.0 - 31.0 PG) 32.9 H MCHC (33.0 - 37.0 G/DL) 33.3 RDW (11.5 - 14.5 %) 13.2 Plt Count (130 - 400 /CUMM) 278 MPV (7.4 - 10.4 FL) 7.6 Gran % (42.2 - 75.2 %) 86.3 H Lymphocytes % (20.5 - 51.1 %) 5.0 L Monocytes % (1.7 - 9.3 %) 8.1 Eosinophils % (0 - 5 %) 0.3 Basophils % (0.0 - 2.0 %) 0.3 Absolute Granulocytes (1.4 - 6.5 /CUMM) 16.4 H Absolute Lymphocytes (1.2 - 3.4 /CUMM) 1.0 L Absolute Monocytes (0.10 - 0.60 /CUMM) 1.6 H Absolute Eosinophils (0.0 - 0.7 /CUMM) 0.1 Absolute Basophils (0.0 - 0.2 /CUMM) 0.1 Last 24 Hours of Jake Results: 06/26 sputum cx + MRSA S vancomycin Diagnostic Data Recent Imaging Findings: EXAMINATION: CT ANGIOGRAM OF THE CHEST WITH AND WITHOUT CONTRAST (CT PULMONARY ANGIOGRAM FOR PE) CLINICAL INFORMATION: Reason for Study:
Presumptive Dx: R/O PE, PNA, HEMORRHAGE
Signs Symptoms: HYPOXIA/FEVER FOLLOWING BRONCHOSCOPY
COMPARISON: Chest x-ray earlier same day. The report of PET/CT 06/12/17 indicates markedly avid lingular nodule. The patient apparently underwent navigational bronchoscopy on 06/26/17 TECHNIQUE: Prior to contrast administration, noncontrast localization images were obtained. Subsequently, multidetector volumetric imaging was performed from the thoracic inlet to below the diaphragms following the administration of 95 mL Optiray 320 intravenous contrast. No contrast reaction reported. Sagittal, coronal, and MIP oblique sagittal reformatted images were obtained on the CT workstation, uploaded to PACS, and reviewed. Total exam dose-length product 333 mGy-cm. FINDINGS: QUALITY OF STUDY/CONTRAST BOLUS: Satisfactory PULMONARY ARTERIES: No pulmonary embolus demonstrated. The main pulmonary artery is normal caliber. There is no evidence of arterial extravasation in the lingula. The left lower pulmonary veins are somewhat attenuated and not well enhanced. THORACIC AORTA: There is no thoracic aortic aneurysm. There is no aortic dissection demonstrated. There is coronary artery calcification. LUNG: No abnormality the trachea or mainstem bronchi. There is generalized thickening of the interlobular septa. There is underlying centrilobular emphysema. There is dense consolidation in the lingula and left lower lobe. There is a metallic marker for fiducial in the lingula. The site of the previous lingular nodule is obscured. There is volume loss in the left lower lobe. No change in a vague nodular density in the anterior segment left upper lobe (series 2, image 163). PLEURA: There is a trace amount left pleural fluid. There is no pneumothorax. MEDIASTINUM: There are no measurably enlarged mediastinal or hilar lymph nodes. The mediastinum is somewhat shifted toward the left. There is no suspicious abnormality of the esophagus. No evidence of septal bowing or right heart strain. CHEST WALL/AXILLA: No axillary or internal mammary lymphadenopathy. OSSEOUS STRUCTURES: No acute or suspicious osseous abnormality. UPPER ABDOMEN: Slight indistinctness in the region of the adrenal glands and minor perinephric stranding. No suspicious focal mass. Elevation of the left hemidiaphragm. No reflux of contrast into the hepatic veins to suggest elevated right heart pressures. IMPRESSION: There is volume loss and consolidation in the lingula and left lower lobe which could be hemorrhage or pneumonia. There is no pneumothorax. No significant pleural fluid. No pulmonary embolus or active extravasation. Underlying emphysema. Generalized thickening of the interlobular septa. VTE: positive DICTATED BY: Celio Childress MD DATE/TIME DICTATED:06/29/172045 ELECTRONIC INTELLIGENCE OFFICER:DANII DATE/TIME TRANSCRIBED:06/29/172045 Assessment/Plan Assessment/Plan Impression: 77-year-old female with past medical history of COPD and atrial fibrillation admitted on 06/29. LLL MRSA pneumonia Leukocytosis Malaise/fatigued Suggestion: 1. Start tx w/ iv vancomycin dosed per pharmacy; 2. Vanco trough 30 min before 4th dose; goal trough 15-20. 3. Teend CBC, BMP. Swallow eval if increasing cough after eating. 4. Trend CBC, BMP. Consult Acknowledgment - Thank you for your consult request.
[2017-06-30 21:32] VITALS: BP 106/60
[2017-07-01 06:53] VITALS: BP 130/70
--- NOTE | 2017-07-01 08:43 | PN- Housestaff ---
[place] WINSTON,Maureen 07/01/17 0842: Subjective Follow-up For: pna Subjective: patient notes productive cough and mild chest pain with deep inspiration. she has been on 2L here. had one episode of streaky hemoptysis which has resolved. Review of Systems Constitutional: Reports: no symptoms. EENTM: Reports: no symptoms. Cardiovascular: Reports: no symptoms. Respiratory: Reports: cough, short of breath, sputum production. Gastrointestinal: Reports: no symptoms. Genitourinary: Reports: no symptoms. Musculoskeletal: Reports: no symptoms. Skin: Reports: no symptoms. Objective Last 24 Hrs of Vital Signs/I&O Vital Signs Date Time Temp Pulse Resp B/P B/P Pulse O2 O2 Flow FiO2 Mean Ox Delivery Rate 07/01 2040 93 Nasal 2.0L Cannula 07/01 1600 Nasal 2.0L Cannula 07/01 1338 99.6 94 18 110/84 92 Nasal 2.0L Cannula 07/01 0838 92 Nasal 2.0L Cannula 07/01 0800 Nasal 2.0L Cannula 07/01 0653 99.0 96 20 130/70 92 Nasal 2.0L Cannula 06/30 2325 96 Nasal 2.0L Cannula 06/30 2132 98.5 72 20 106/60 92 06/30 2127 93 Nasal 2.0L Cannula Intake & Output 07/01 1600 07/01 0800 07/01 0000 Intake Total 4156 788 0706 Output Total Balance 3957 501 9955 Intake, IV 194 12 6908 Intake, Oral 1200 240 490 Physical Exam General Appearance: Alert, Oriented X3, Cooperative, No Acute Distress HEENT: Atraumatic, PERRLA, EOMI Neck: Supple Cardiovascular: Regular Rate, Normal S1, Normal S2, No Murmurs Lungs: Normal Air Movement Abdomen: Normal Bowel Sounds, Soft, No Tenderness Current Medications: Current Medications Sig/Mal Start time Last Medication Dose Route Stop Time Status Admin Acetaminophen 650 MG Q6P PRN 06/29 2345 AC 06/30 PO 1552 Albuterol Sulfate 3 ML TID 06/30 1400 AC 07/01 INH 2036 Azithromycin 500 MG DAILY 06/30 Sodium Chloride 250 ML IV 2110 Brimonidine Tartrate 1 GTT BID 06/30 0100 07/01 OPH 0908 Budesonide/ 2 PUF BID 06/30 0101 AC 07/01 Formoterol Fumarate INH 0909 Ceftriaxone Sodium 1,000 MG DAILY 06/30 2200 DC 06/30 IV 2110 Diltiazem HCl 360 MG DAILY 06/30 0900 AC 07/01 PO 09 Furosemide 20 MG DAILY 06/30 0900 AC 07/01 PO 09 Ipratropium [place] 2.5 ML TID 06/30 1400 AC 07/01 INH 2036 Rivaroxaban 20 MG DAILY 06/30 2200 AC 07/01 PO 09 Vancomycin HCl 1,000 MG DAILY 06/30 1145 AC 07/01 Sodium Chloride 250 ML IV 09 Last 24 Hrs of Lab/Jake Results Last 24 Hrs of Labs/Mics: Laboratory Tests 07/01/17 0635: Anion Gap 9, Estimated GFR > 60, BUN/Creatinine Ratio 14.3, CBC w Diff NO MAN DIFF REQ, RBC 3.99 L, MCV 98.6, MCH 33.1 H, MCHC 33.6, RDW 13.2, MPV 8.0, Gran % 82.7 H, Lymphocytes % 8.0 L, Monocytes % 7.9, Eosinophils % 1.2, Basophils % 0.2, Absolute Granulocytes 10.0 H, Absolute Lymphocytes 1.0 L, Absolute Monocytes 1.0 H, Absolute Eosinophils 0.1, Absolute Basophils 0 Microbiology 07/01 1228 LOWER RESP: Respiratory Culture - RES 07/01 122 LOWER RESP: Gram Stain - RES Assessment/Plan Assessment: The patient is a 2-year-old female with past medical history of COPD not on home oxygen , atrial fibrillation on Xarelto and Cardizem Patient patient presented to [facility] on 06/29 with a complaint of body aches, productive cough, chills and fevers past 2 days. The patient has been admitted to general medicine floor for continued evaluation for following conditions #Community-acquired pneumonia The patient's presentation of leukocytosis fever productive cough and opacity on image he sees consistent with pneumonia. However CTA cannot distinguish between hemorrhage or consolidation so that should also be kept in mind since she is status post bronchoscopy held on the list of differentials. -Monitor fever and WBC count -Monitor vitals every shift -Urine strep antigen neg -Urine Legionella neg -Blood cultures pending -Respiratory sputum culture pending -Ceftriaxone switched to vanco and azithromycin. vanco trough before 07/03 dose -Oxygen supplementation to maintain oxygen saturation above 92% -Pulmonology consult will be palced sunday #Xarelto Hyponatremia Patient appears to be dry and reports poor oral intake since past few days. He can be hypovolemic hyponatremia. We are going to hydrate for now. However because of lung pathology that might be a component of SIADH going on - serum osmolality, urine osmolality and urine lites pending -For now we are going to hydrate the patient to normal saline and restart xarelto as hemoptysis has resolved #History of paroxysmal atrial fibrillation -Continue Cardizem and xarelto #History of COPD -Oxygen supplementation -DuoNebc Regular diet/DVT prophylaxis with ALPs ONLY/Full code Problem List: 1. Pneumonia Pain Ratin Pain Location: na Pain Goal: Remain pain free Pain Plan: na Tomorrow's Labs & Rationales: linda Martinez MD,Serna 07/01/17 1238: Attending MD Review Statement Attending Statement Attending MD Statement: examined this patient, discuss w/resident/PA/WIRELESS RETAIL MANAGER, agreed w/resident/PA/WIRELESS RETAIL MANAGER, reviewed EMR data (avail), discussed with nursing, discussed with case mgmt, reviewed images, amended to note Attending Assessment/Plan: 77 year old female, active smoker, A. fib on Xarelto (currently on hold because of possible hemoptysis) hypertension, COPD and recently status post bronchoscopy on July 01 for a lingular mass presumably negative for malignancy, has been admitted for symptoms of malaise, weakness, dyspnea on exertion, cough which is productive and blood streaked sputum with chest x-ray showing left lower lobe lobe consolidation/hemorrhage, currently on IV antibiotics, doing well. Patient was seen and examined on the bedside, mild chest pain on deep exhalation , but overall feeling fine, currently on 2 L of nasal cannula, afebrile overnight, leukocytosis coming down. ID consult appreicated. We'll continue on vancomycin, follow sputum and blood cultures, pulmonary consult pending, continue on gentle IV hydration, hyponatremia improved with gentle normal saline, can resume anticoagulants if no more hemoptysis, continue with the rest of her home medications, supplemental oxygen, TRC nebs, DVT prophylaxis with Alps unless started back on Xarelto, follow-up with Dr. Fontenot on discharge. check vanco trough before the fourth dose to keep a vanco trough between 15-20
[2017-07-01 08:56] LABS: ABSOLUTE BASOPHIL COUNT 0 /CUMM (0.0-0.2); ABSOLUTE EOSINOPHIL COUNT 0.1 /CUMM (0.0-0.7); BASOPHIL % 0.2 % (0.0-2.0); EOSINOPHIL % 1.2 % (0-5); GRANULOCYTE % 82.7 % (42.2-75.2); HEMATOCRIT 39.4 % (37-47); MEAN CORPUSCULAR HGB 33.1 PG (27.0-31.0); MEAN CORPUSCULAR HGB CONC 33.6 G/DL (33.0-37.0); MEAN CORPUSCULAR VOLUME 98.6 FL (81.0-99.0); PLATELET COUNT 263 /CUMM (130-400); RBC DISTRIBUTION WIDTH 13.2 % (11.5-14.5); RED BLOOD CELL CT 3.99 /CUMM (4.20-5.40); WHITE BLOOD CELL COUNT 12.1 /CUMM (4.8-10.8)
[2017-07-01 13:38] VITALS: BP 110/84
--- NOTE | 2017-07-01 18:35 | PN- Infect Dx ---
Subjective Subjective: No fever; persistent cough, bringing up purulent sputum blood tinged. Review of Systems Comments: 12 points reviewed as noted, otherwise negative. Objective Last 24 Hrs of Vital Signs/I&O Vital Signs Date Time Temp Pulse Resp B/P B/P Pulse O2 O2 Flow FiO2 Mean Ox Delivery Rate 07/01 1600 Nasal 2.0L Cannula 07/01 1338 99.6 94 18 110/84 92 Nasal 2.0L Cannula 07/01 0838 92 Nasal 2.0L Cannula 07/01 0800 Nasal 2.0L Cannula 07/01 0653 99.0 96 20 130/70 92 Nasal 2.0L Cannula 06/30 2325 96 Nasal 2.0L Cannula 06/30 2132 98.5 72 20 106/60 92 06/30 2127 93 Nasal 2.0L Cannula Intake & Output 07/01 1600 07/01 0800 07/01 0000 Intake Total 7491 317 7326 Output Total Balance 2241 724 1519 Intake, IV 724 43 3338 Intake, Oral 1200 240 490 Physical Exam Other Physical Findings: General Appearance: Alert, Oriented X3, Cooperative HEENT AT/NC Neck No JVD Cardiovascular: Normal S1, Normal S2 Lungs: decreased breath sounds both bases, few fine rales L>R base, b/l rhonchi w/ cough Abdomen: Normal Bowel Sounds, Soft, No Tenderness Neurological: Normal Speech Skin pale Results Last 24 Hours of Lab Results: Laboratory Tests 07/01 0635 Chemistry Sodium (137 - 145 mmol/L) 137 Potassium (3.5 - 5.1 mmol/L) 4.0 Chloride (98 - 107 mmol/L) 102 Carbon Dioxide (22 - 30 mmol/L) 27 Anion Gap (5 - 16) 9 BUN (7 - 17 mg/dL) 10 Creatinine (0.5 - 1.0 mg/dL) 0.7 Estimated GFR (>60 ml/min) > 60 BUN/Creatinine Ratio (7 - 25 %) 14.3 Hematology CBC w Diff NO MAN DIFF REQ WBC (4.8 - 10.8 /CUMM) 12.1 H RBC (4.20 - 5.40 /CUMM) 3.99 L Hgb (12.0 - 16.0 G/DL) 13.2 Hct (37 - 47 %) 39.4 MCV (81.0 - 99.0 FL) 98.6 MCH (27.0 - 31.0 PG) 33.1 H MCHC (33.0 - 37.0 G/DL) 33.6 RDW (11.5 - 14.5 %) 13.2 Plt Count (130 - 400 /CUMM) 263 MPV (7.4 - 10.4 FL) 8.0 Gran % (42.2 - 75.2 %) 82.7 H Lymphocytes % (20.5 - 51.1 %) 8.0 L Monocytes % (1.7 - 9.3 %) 7.9 Eosinophils % (0 - 5 %) 1.2 Basophils % (0.0 - 2.0 %) 0.2 Absolute Granulocytes (1.4 - 6.5 /CUMM) 10.0 H Absolute Lymphocytes (1.2 - 3.4 /CUMM) 1.0 L Absolute Monocytes (0.10 - 0.60 /CUMM) 1.0 H Absolute Eosinophils (0.0 - 0.7 /CUMM) 0.1 Absolute Basophils (0.0 - 0.2 /CUMM) 0 Last 24 Hours of Jake Results: Reviewed Recent Imaging Studies: reviewed Assessment/Plan ID Impression: 77-year-old female with past medical history of COPD and atrial fibrillation admitted on 06/29. LLL MRSA pneumonia Leukocytosis Malaise/fatigued Suggestion: 1. Cont tx w/ iv vancomycin D #03/21 dosed per pharmacy; 2. Vanco trough 30 min before 4th dose; goal trough 15-20. 3. Teend CBC, BMP.
[2017-07-01 22:35] VITALS: BP 118/80
[2017-07-02 06:54] VITALS: BP 116/84
[2017-07-02 09:21] LABS: ABSOLUTE BASOPHIL COUNT 0 /CUMM (0.0-0.2); ABSOLUTE EOSINOPHIL COUNT 0.2 /CUMM (0.0-0.7); ABSOLUTE LYMPH COUNT 0.6 /CUMM (1.2-3.4); BASOPHIL % 0.1 % (0.0-2.0); EOSINOPHIL % 1.9 % (0-5); GRANULOCYTE % 81.2 % (42.2-75.2); HEMATOCRIT 38.8 % (37-47); MEAN CORPUSCULAR HGB 33.2 PG (27.0-31.0); MEAN CORPUSCULAR HGB CONC 33.3 G/DL (33.0-37.0); MEAN CORPUSCULAR VOLUME 99.6 FL (81.0-99.0); MEAN PLATELET VOLUME 8.2 FL (7.4-10.4); PLATELET COUNT 283 /CUMM (130-400); RBC DISTRIBUTION WIDTH 13.1 % (11.5-14.5); WHITE BLOOD CELL COUNT 9.9 /CUMM (4.8-10.8)
--- NOTE | 2017-07-02 10:12 | PN- Housestaff ---
[place] WINSTON,Maureen 07/02/17 1012: Subjective Follow-up For: pna Subjective: Patient states that she feels good today. She notes that she has less cough and shortness of breath. she is on 2L oxyen at the time of interview. Review of Systems Constitutional: Reports: no symptoms. EENTM: Reports: no symptoms. Cardiovascular: Reports: no symptoms. Respiratory: Reports: no symptoms. Gastrointestinal: Reports: no symptoms. Genitourinary: Reports: no symptoms. Musculoskeletal: Reports: no symptoms. Skin: Reports: no symptoms. Neurological/Psychological: Reports: no symptoms. Hematologic/Endocrine: Reports: no symptoms. Objective Last 24 Hrs of Vital Signs/I&O Vital Signs Date Time Temp Pulse Resp B/P B/P Pulse O2 O2 Flow FiO2 Mean Ox Delivery Rate 07/02 0828 93 Nasal 2.0L Cannula 07/02 0800 Nasal 2.0L Cannula 07/02 0654 98.0 72 20 116/84 94 Nasal 2.0L Cannula 07/02 0000 93 Nasal 2.0L Cannula 07/01 2235 98.2 78 20 118/80 93 07/01 2040 93 Nasal 2.0L Cannula 07/01 1600 Nasal 2.0L Cannula Intake & Output 07/02 1600 07/02 0800 07/02 0000 Intake Total 130 540 Output Total Balance 130 540 Intake, IV 10 300 Intake, Oral 120 240 Patient 144 lb Weight Physical Exam General Appearance: Alert, Oriented X3, Cooperative, No Acute Distress Skin: No Rashes, No Breakdown, No Significant Lesion Skin Temp/Moisture Exam: Warm/Dry Sepsis Skin Exam (color): Normal for Ethnicity Neck: Supple, No JVD Cardiovascular: Regular Rate, Normal S1, Normal S2, No Murmurs Lungs: Clear to Auscultation, Normal Air Movement Abdomen: Normal Bowel Sounds, Soft, No Tenderness Neurological: Normal Speech Extremities: No Clubbing, No Cyanosis, No Edema, Normal Pulses, No Tenderness/ Swelling Current Medications: Current Medications Sig/Mal Start time Last Medication Dose Route Stop Time Status Admin Acetaminophen 650 MG Q6P PRN 06/29 2345 AC 07/02 PO 1117 Albuterol Sulfate 3 ML TID 06/30 1400 AC 07/02 INH 1306 Azithromycin 500 MG AT BEDTIME 07/02 2100 AC Sodium Chloride 250 ML IV Azithromycin 500 MG DAILY 06/30 2200 DC 07/01 Sodium Chloride 250 ML IV 210 Brimonidine Tartrate 1 GTT BID 06/30 0100 AC 07/02 OPH 0909 Budesonide/ 2 PUF BID 06/30 0101 AC 07/02 Formoterol Fumarate INH 0909 Diltiazem HCl 360 MG DAILY 06/30 0900 AC 07/02 PO 0910 Furosemide 20 MG DAILY 06/30 0900 AC 07/02 PO 0910 Ipratropium [place] 2.5 ML TID 06/30 1400 AC 07/02 INH 1306 Rivaroxaban 20 MG DAILY 06/30 2200 AC 07/02 PO 0910 Senna 187 MG AT BEDTIME 07/02 2100 DC PO Senna 187 MG AT BEDTIME 07/01 2359 AC 07/01 PO 2338 Vancomycin HCl 1,000 MG DAILY 06/30 1145 AC 07/02 Sodium Chloride 250 ML IV 0910 Last 24 Hrs of Lab/Jake Results Last 24 Hrs of Labs/Mics: Laboratory Tests 07/02/17 0635: CBC w Diff NO MAN DIFF REQ, RBC 3.90 L, MCV 99.6 H, MCH 33.2 H, MCHC 33.3, RDW 13.1, MPV 8.2, Gran % 81.2 H, Lymphocytes % 6.4 L, Monocytes % 10.4 H, Eosinophils % 1.9, Basophils % 0.1, Absolute Granulocytes 8.0 H, Absolute Lymphocytes 0.6 L, Absolute Monocytes 1.0 H, Absolute Eosinophils 0.2, Absolute Basophils 0 Assessment/Plan Assessment: Assessment: The patient is a 77-year-old female with past medical history of COPD not on home oxygen , atrial fibrillation on Xarelto and Cardizem Patient patient presented to [facility] ED on 06/29 with a complaint of body aches, productive cough, chills and fevers past 2 days. The patient has been admitted to general medicine floor for continued evaluation for following conditions #Community-acquired pneumonia The patient's presentation of leukocytosis fever productive cough and opacity on image he sees consistent with pneumonia. However CTA cannot distinguish between hemorrhage or consolidation so that should also be kept in mind since she is status post bronchoscopy held on the list of differentials. -Monitor fever and WBC count -Monitor vitals every shift -Urine strep antigen neg -Urine Legionella neg -Blood cultures pending -Respiratory sputum culture pending -Ceftriaxone switched to vanco and azithromycin. vanco trough before 07/03 dose -Oxygen supplementation to maintain oxygen saturation above 92% -Pulmonology will be seeing - patient wants Dr. Amato #Hyponatremia Patient appears to be dry and reports poor oral intake since past few days. Probable hypovolemic hyponatremia. We are going to hydrate for now. However because of lung pathology that might be a component of SIADH going on. -hyponatremia resolved -For now we are going to hydrate the patient to normal saline #History of paroxysmal atrial fibrillation -Continue Cardizem and xarelto restart as hemoptysis has resolved. #History of COPD -Oxygen supplementation -DuoNebc Regular diet/DVT prophylaxis with ALPs ONLY/Full code Problem List: 1. Pneumonia Pain Ratin Pain Location: na Pain Goal: Remain pain free Pain Plan: na Tomorrow's Labs & Rationales: valeria Martinez MD,Serna 07/02/17 1133: Attending MD Review Statement Attending Statement Attending MD Statement: examined this patient, discuss w/resident/PA/HANDHOLE MACHINE OPERATOR, agreed w/resident/PA/HANDHOLE MACHINE OPERATOR, discussed with family, reviewed EMR data (avail), discussed with nursing, discussed with case mgmt, reviewed images, amended to note Attending Assessment/Plan: 77 year old female, active smoker, A. fib on Xarelto (currently on hold because of possible hemoptysis) hypertension, COPD and recently status post bronchoscopy on July 01 for a lingular mass presumably negative for malignancy, has been admitted for symptoms of malaise, weakness, dyspnea on exertion, cough which is productive and blood streaked sputum with chest x-ray showing left lower lobe lobe consolidation/hemorrhage, currently on IV antibiotics, doing well. Patient was seen and examined on the bedside, mild chest pain on deep exhalation , but overall feeling fine, currently on 2 L of nasal cannula, afebrile overnight, leukocytosis coming down. ID consult appreicated. We'll continue on vancomycin, follow sputum and blood cultures, pulmonary consult pending, continue on gentle IV hydration, hyponatremia resolved, stop IV fluids, continue on anticoagulants as the patient does not has any more hemoptysis, continue with the rest of her home medications, supplemental oxygen, TRC nebs, DVT prophylaxis with Xarelto, follow-up with Dr. Fontenot on discharge. check vanco trough before the fourth dose to keep a vanco trough between 15-20
[2017-07-02 14:13] VITALS: BP 122/70
--- NOTE | 2017-07-02 17:44 | PN- Infect Dx ---
Subjective Subjective: No fever; persistent cough; although improved. Has chills. Review of Systems Comments: 12 points reviewed as noted, otherwise negative Objective Last 24 Hrs of Vital Signs/I&O Vital Signs Date Time Temp Pulse Resp B/P B/P Pulse O2 O2 Flow FiO2 Mean Ox Delivery Rate 07/02 1413 97.4 80 20 122/70 93 Nasal 2.0L Cannula 07/02 0828 93 Nasal 2.0L Cannula 07/02 0800 Nasal 2.0L Cannula 07/02 0654 98.0 72 20 116/84 94 Nasal 2.0L Cannula 07/02 0000 93 Nasal 2.0L Cannula 07/01 2235 98.2 78 20 118/80 93 07/01 2040 93 Nasal 2.0L Cannula Intake & Output 07/02 1600 07/02 0800 07/02 0000 Intake Total 1050 130 540 Output Total Balance 1050 130 540 Intake, IV 250 10 300 Intake, Oral 800 120 240 Patient 144 lb Weight Physical Exam Other Physical Findings: eneral Appearance: Alert, Oriented X3, Cooperative HEENT AT/NC Neck No JVD Cardiovascular: Normal S1, Normal S2 Lungs: decreased breath sounds both bases, few fine rales L>R base, b/l rhonchi w/ cough Abdomen: Normal Bowel Sounds, Soft, No Tenderness Neurological: Normal Speech Skin pale Results Last 24 Hours of Lab Results: Laboratory Tests 07/02 0635 Hematology CBC w Diff NO MAN DIFF REQ WBC (4.8 - 10.8 /CUMM) 9.9 RBC (4.20 - 5.40 /CUMM) 3.90 L Hgb (12.0 - 16.0 G/DL) 12.9 Hct (37 - 47 %) 38.8 MCV (81.0 - 99.0 FL) 99.6 H MCH (27.0 - 31.0 PG) 33.2 H MCHC (33.0 - 37.0 G/DL) 33.3 RDW (11.5 - 14.5 %) 13.1 Plt Count (130 - 400 /CUMM) 283 MPV (7.4 - 10.4 FL) 8.2 Gran % (42.2 - 75.2 %) 81.2 H Lymphocytes % (20.5 - 51.1 %) 6.4 L Monocytes % (1.7 - 9.3 %) 10.4 H Eosinophils % (0 - 5 %) 1.9 Basophils % (0.0 - 2.0 %) 0.1 Absolute Granulocytes (1.4 - 6.5 /CUMM) 8.0 H Absolute Lymphocytes (1.2 - 3.4 /CUMM) 0.6 L Absolute Monocytes (0.10 - 0.60 /CUMM) 1.0 H Absolute Eosinophils (0.0 - 0.7 /CUMM) 0.2 Absolute Basophils (0.0 - 0.2 /CUMM) 0 Last 24 Hours of Jake Results: reviewed Recent Imaging Studies: reviewed Assessment/Plan ID Impression: Impression: 77-year-old female with past medical history of COPD and atrial fibrillation admitted on 06/29. LLL MRSA pneumonia Leukocytosis; resolved Suggestion: 1. Cont tx w/ iv vancomycin D #3 dosed per pharmacy; probably ok to stop azithromycin; f/u w/ pulm recom; as patient clinically improved consider transition to oral abx next 48 h (e. g minocycline 100 mg po bid in order to complete total 14 d therapy); 2. Vanco trough 30 min before 4th dose; goal trough 15-20; due 07/03.
[2017-07-02 21:39] VITALS: BP 116/56
[2017-07-03 06:20] VITALS: BP 118/60
--- NOTE | 2017-07-03 07:16 | PN- Housestaff ---
Ciro WINSTON,Sissy 07/03/17 0715: Subjective Follow-up For: LLL MRSA pneumonia Leukocytosis; resolved Subjective: Patient seen and examined. Sitting in the chair comfortably. Currently on 2 L of oxygen maintaining oxygen saturation above 95%. Patient is being treated with vancomycin for MRSA pneumonia. Tmax 99.5 with white count WNL. Review of Systems Constitutional: Reports: see HPI. Objective Last 24 Hrs of Vital Signs/I&O Vital Signs Date Time Temp Pulse Resp B/P B/P Pulse O2 O2 Flow FiO2 Mean Ox Delivery Rate 07/03 0835 94 Nasal 2.0L Cannula 07/03 0620 99.5 73 20 118/60 93 Nasal Cannula 07/03 0000 Nasal 2.0L Cannula 07/02 2219 96 Nasal 2.0L Cannula 07/02 2139 98.6 81 20 116/56 92 Nasal Cannula 07/02 1600 Nasal 2.0L Cannula 07/02 1413 97.4 80 20 122/70 93 Nasal 2.0L Cannula Intake & Output 07/03 1600 07/03 0800 07/03 0000 Intake Total 300 200 Output Total Balance 300 200 Intake, Oral 300 200 Physical Exam General Appearance: Alert, Oriented X3, Cooperative Cardiovascular: Normal S1, Normal S2 Lungs: decreased breath sounds Abdomen: Normal Bowel Sounds, Soft Neurological: Normal Speech Current Medications: Current Medications Sig/Mal Start time Last Medication Dose Route Stop Time Status Admin Acetaminophen 650 MG .STK-MED ONE 07/02 2110 DC PO 07/03 2111 Acetaminophen 650 MG .STK-MED ONE 07/02 1115 DC PO 07/02 111 Acetaminophen 650 MG Q6P PRN 06/29 2345 AC 07/02 PO 2115 Albuterol Sulfate 3 ML TID 06/30 1400 AC 07/03 INH 0835 Azithromycin 500 MG AT BEDTIME 07/02 2100 DC 07/02 Sodium Chloride 250 ML IV 2115 Brimonidine Tartrate 1 GTT BID 06/30 0100 07/03 OPH 0902 Budesonide/ 2 PUF BID 06/30 0101 AC 07/03 Formoterol Fumarate INH 0904 Diltiazem HCl 360 MG DAILY 06/30 0900 AC 07/03 PO 0902 Furosemide 20 MG DAILY 06/30 0900 AC 07/03 PO 0902 Ipratropium [place] 2.5 ML TID 06/30 1400 AC 05/29 INH 0835 Rivaroxaban 20 MG DAILY 06/30 2200 AC 07/03 PO 0902 Senna 187 MG AT BEDTIME 07/02 2100 DC PO Senna 187 MG AT BEDTIME 07/01 2359 AC 07/02 PO 2116 Vancomycin HCl 1,000 MG DAILY 06/30 1145 AC 07/03 Sodium Chloride 250 ML IV 0902 Last 24 Hrs of Lab/Jake Results Last 24 Hrs of Labs/Mics: Laboratory Tests 07/03/17 0701: CBC w Diff NO MAN DIFF REQ, RBC 3.56 L, MCV 99.0, MCH 33.1 H, MCHC 33.5, RDW 13.0, MPV 7.7, Gran % 79.4 H, Lymphocytes % 7.2 L, Monocytes % 11.2 H, Eosinophils % 1.9, Basophils % 0.3, Absolute Granulocytes 6.9 H, Absolute Lymphocytes 0.6 L, Absolute Monocytes 1.0 H, Absolute Eosinophils 0.2, Absolute Basophils 0, Vancomycin Trough < 5.0 L Assessment/Plan Assessment: The patient is a 2-year-old female with past medical history of COPD not on home oxygen , atrial fibrillation on Xarelto and Cardizem Patient patient presented to [facility] ED on 06/29 with a complaint of body aches, productive cough, chills and fevers past 2 days. The patient has been admitted to general medicine floor for evaluation of following conditions #LLL MRSA pneumonia The patient's presentation of leukocytosis fever productive cough and opacity on image he sees consistent with pneumonia. However CTA cannot distinguish between hemorrhage or consolidation so that should also be kept in mind since she is status post bronchoscopy. -Monitor fever and WBC count, MAXIMUM TEMPERATURE 99.5 white count within normal limits -Urine strep antigen neg, Urine Legionella neg -Blood cultures No growth so far. -Respiratory sputum culture positive for yeast and Staph aureus, sensitivity pending. She was initially started on ceftriaxone and azithromycin and later switched to vancomycin in view of respiratory sputum culture growing MRSA done on 06/26 with bronchoscopy. -Vanco trough pending -Oxygen supplementation to maintain oxygen saturation above 92% -Pulmonology consult placed with Dr. Rosas #Drop in H&H Patient's H&H has dropped from 14.8/44 to 11.8/35, patient is on Xarelto -We will Guacic stool -Monitor H/H inpatient and give her CBC prescription on discharge #History of paroxysmal atrial fibrillation -Continue Cardizem and Xarelto initially held and then later restarted on 06/30 #Hyponatremia Patient appears to be dry and reports poor oral intake since past few days. He can be hypovolemic hyponatremia. We are going to hydrate for now. However because of lung pathology that might be a component of SIADH going on -Resolved #History of COPD -Oxygen supplementation -DuoNebc Regular diet/DVT prophylaxis with ALPs ONLY/Full code Problem List: 1. Leukocytosis 2. Pneumonia Pain Ratin Pain Location: nore Pain Goal: Pain 4 or less Pain Plan: prn Tomorrow's Labs & Rationales: valeria Pyle MD,Gail 07/03/17 1232: Attending MD Review Statement Attending Statement Attending MD Statement: examined this patient, discuss w/resident/PA/C D STILL OPERATOR, agreed w/resident/PA/C D STILL OPERATOR, discussed with family, reviewed EMR data (avail), discussed with nursing, discussed with case mgmt, amended to note Attending Assessment/Plan: Patient seen and examined. Sitting up comfortably in her chair not in any acute distress. Daughter present at the bedside. Reports feeling better compared to presentation. Reports mild cough. Denies shortness of breath. She is afebrile hemodynamically stable. On examination she has adequate entry bilaterally with no added sounds. She however continues to require oxygen supplementation at present. She does desaturate into the low 80s on room air while ambulating. Pulmonology consultation appreciated. Preliminary biopsy results have returned negative. Patient noted to have mild drop in her hemoglobin level compared to presentation. She denies any history of black or bloody stools. She did present with some hemoptysis initially which has resolved. Recommendations: -Patient medically stable to be discharged home today on antibiotic regimen recommended by the ID service. -Patient to have hemoglobin levels repeated in 48 hours with her primary care provider. -Patient to return to the emergency room if she develops worsening symptoms. -Complete biopsy results and risks of pulmonary care will be as directed by the pulmonology service in the outpatient setting. This was explained to the patient and her daughter.
[2017-07-03 08:15] LABS: ABSOLUTE BASOPHIL COUNT 0 /CUMM (0.0-0.2); ABSOLUTE EOSINOPHIL COUNT 0.2 /CUMM (0.0-0.7); ABSOLUTE GRANULOCYTE CT 6.9 /CUMM (1.4-6.5); ABSOLUTE LYMPH COUNT 0.6 /CUMM (1.2-3.4); BASOPHIL % 0.3 % (0.0-2.0); EOSINOPHIL % 1.9 % (0-5); GRANULOCYTE % 79.4 % (42.2-75.2); HEMATOCRIT 35.3 % (37-47); MEAN CORPUSCULAR HGB 33.1 PG (27.0-31.0); MEAN CORPUSCULAR HGB CONC 33.5 G/DL (33.0-37.0); MEAN PLATELET VOLUME 7.7 FL (7.4-10.4); PLATELET COUNT 289 /CUMM (130-400); RED BLOOD CELL CT 3.56 /CUMM (4.20-5.40); WHITE BLOOD CELL COUNT 8.7 /CUMM (4.8-10.8)
[2017-07-03] MEDS ORDERED: MINOCYCLINE HC100 M1 PO (08:32)
[2017-07-03] MEDS ORDERED: NICODERM CQ1 EAC1 TOP ×2 (10:53→15:29)
--- NOTE | 2017-07-03 12:04 | Cons- Pulmonary ---
General Information and HPI Consulting Request Date of Consult: 07/03/17 Requested By: Margy Reason for Consult: MRSA pneumonia History of Present Illness: Patient is 77-year-old with COPD not oxygen dependent actively smoking admitted with fevers chills leukocytosis left lower lobe pneumonia secondary to MRSA. Patient underwent low-dose CT scan of the chest and found to have a nodular lesion in the left lung for which she underwent navigational bronchoscopy several days ago. Cytology biopsy negative lavage was positive for MRSA. She subsequently developed fevers chills and now presents with extensive left lower lobe lingula infiltrate is social with volume loss. There is a central consolidative area which has lucencies within it which may represent cavitation. Patient has clinically responded with resolved fever and white count the remains oxygen dependent with acute hypoxic respiratory failure. He is had minor hemoptysis which appears to have resolved Allergies/Medications Allergies: Coded Allergies: erythromycin base (SEVERE GI UPSET AND BECAME PHYSICALLY ILL 06/29/17) Home Med List: Acetaminophen (8 Hour) 650 MG TABLET.ER 1 TAB PO PRN PAIN (Reported) Amoxicillin/Clavulanate Potass (Amox-Clav 875-125 MG Tablet) 875 MG-125 MG TABLET 1 TAB PO BID ABX (Reported) Brimonidine Tartrate 0.2 % DROPS 1 DROP OU BID BOTH EYES (Reported) Cholecalciferol (Vitamin D3) (Vitamin D) 2,000 UNIT CAPSULE 1 CAP PO DAILY SUPPLEMENT (Reported) Cyanocobalamin (Vitamin B-12) 1,000 MCG TABLET 1 TAB PO DAILY SUPPLEMENT ( Reported) Diltiazem HCl (Matzim [place]) 360 MG TAB.ER.24H 1 TAB PO DAILY HEART/BP (Reported ) Fluticasone-Salmeterol (Advair 100-50 Diskus) 100 MCG-50 MCG/DOSE BLST.W.DEV 1 PUF INH BID COPD (Reported) Furosemide 20 MG TABLET 1 TAB PO DAILY DIURETIC (Reported) Ipratropium/Albuterol Sulfate (Iprat-Albut 0.5-3(2.5) MG/3 Ml) 0.5 MG-3 MG (2.5 MG BASE)/3 ML AMPUL.NEB 1 VIAL INH 4XDAILY COPD (Reported) Ipratropium/Albuterol Sulfate (Combivent Respimat Inhal [place]) 20 MCG-100 MCG/ ACTUATION MIST.INHAL 1 PUFF INH BID COPD (Reported) Minocycline HCl 100 MG CAPSULE 1 CAP PO BID PNeumonia Nicotine (Nicoderm Cq) 14 MG/24 HOUR PATCH.TD24 1 PAT TOP DAILY smoking cessation Rivaroxaban (Xarelto) 20 MG TABLET 1 TAB PO DAILY BLOOD THINNER (Reported) with food Review of Systems Review of Systems Constitutional: Reports: chills, fever. Cardiovascular: Denies: chest pain. Respiratory: Reports: cough, hemoptysis, short of breath, sputum production. GI: Denies: abdominal pain, diarrhea, melena. Past History Travel History Traveled to [place] past 21 day No Medical History Neurological: NONE EENT: NONE Cardiovascular: AFIB, CHF Respiratory: COPD Gastrointestinal: NONE Hepatic: NONE Renal: NONE Musculoskeletal: NONE Psychiatric: NONE Endocrine: NONE Blood Disorders: NONE Cancer(s): NONE WET TRIMMER/Reproductive: NONE Surgical History Surgical History: non-contributory Psychosocial History Where Do You Live? Home Who Do You Live With? self Services at Home: None Primary Language: Irish Smoking Status: Former Smoker ETOH Use: occasional use Illicit Drug Use: denies illicit drug use Functional Ability ADLs Independent: dressing, eating, toileting, bathing. Ambulation: independent IADLs Independent: shopping, housework, finances, food prep, telephone, transportation , medication admin. Exam & Diagnostic Data Last 24 Hrs of Vital Signs/I&O Vital Signs Date Time Temp Pulse Resp B/P B/P Pulse O2 O2 Flow FiO2 Mean Ox Delivery Rate 07/03 0835 94 Nasal 2.0L Cannula 07/03 0620 99.5 73 20 118/60 93 Nasal Cannula 07/03 0000 Nasal 2.0L Cannula 07/02 2219 96 Nasal 2.0L Cannula 07/02 2139 98.6 81 20 116/56 92 Nasal Cannula 07/02 1600 Nasal 2.0L Cannula 07/02 1413 97.4 80 20 122/70 93 Nasal 2.0L Cannula Intake & Output 07/03 1600 07/03 0800 07/03 0000 Intake Total 300 200 Output Total Balance 300 200 Intake, Oral 300 200 Oxygen saturation 2 L 94% HNT exam shows no adenopathy exam for chest shows somewhat diminished breath sounds of the left posterior chest or back crackles are no wheezes cardiac exam shows a regular rhythm abdomen is soft nontender extremities without clubbing Last 48 Hrs of Labs/Jake: Laboratory Tests 07/03/17 0701: CBC w Diff NO MAN DIFF REQ, RBC 3.56 L, MCV 99.0, MCH 33.1 H, MCHC 33.5, RDW 13.0, MPV 7.7, Gran % 79.4 H, Lymphocytes % 7.2 L, Monocytes % 11.2 H, Eosinophils % 1.9, Basophils % 0.3, Absolute Granulocytes 6.9 H, Absolute Lymphocytes 0.6 L, Absolute Monocytes 1.0 H, Absolute Eosinophils 0.2, Absolute Basophils 0, Vancomycin Trough < 5.0 L 07/02/17 0635: CBC w Diff NO MAN DIFF REQ, RBC 3.90 L, MCV 99.6 H, MCH 33.2 H, MCHC 33.3, RDW 13.1, MPV 8.2, Gran % 81.2 H, Lymphocytes % 6.4 L, Monocytes % 10.4 H, Eosinophils % 1.9, Basophils % 0.1, Absolute Granulocytes 8.0 H, Absolute Lymphocytes 0.6 L, Absolute Monocytes 1.0 H, Absolute Eosinophils 0.2, Absolute Basophils 0 Assessment/Plan Impression/Plan: 77-year-old with COPD found to have a a masslike lesion in the left lung by low- dose CT scanning status post navigational bronchoscopy which revealed MRSA. She now has extensive left lower lobe lingular pneumonia likely secondary to MRSA. The initial lesion may well have been a focal area of MRSA pneumonia. Recommendations: Complete course of antibiotics. taper FiO2 his saturations allow. Patient will need close radiologic follow-up to ensure resolution of the previously described left lung masslike lesion to ensure resolves with antibiotics otherwise further diagnostic studies to exclude malignancy would be necessary. Continue bronchodilator regimen patient has been counseled regarding the need for smoking cessation Consult Acknowledgment - Thank you for your consult request.
[2017-07-03 13:57] VITALS: BP 124/62
--- NOTE | 2017-07-03 15:22 | PN- Infect Dx ---
Subjective Subjective: Afebrile. She continues to report a cough with occasional chills Objective Last 24 Hrs of Vital Signs/I&O Vital Signs Date Time Temp Pulse Resp B/P B/P Pulse O2 O2 Flow FiO2 Mean Ox Delivery Rate 07/03 1357 97.9 97 20 124/62 90 Nasal Cannula 07/03 0835 94 Nasal 2.0L Cannula 07/03 0800 92 Nasal 2.0L Cannula 07/03 0620 99.5 73 20 118/60 93 Nasal Cannula 07/03 0000 Nasal 2.0L Cannula 07/02 2219 96 Nasal 2.0L Cannula 07/02 2139 98.6 81 20 116/56 92 Nasal Cannula 07/02 1600 Nasal 2.0L Cannula Intake & Output 07/03 1600 07/03 0800 07/03 0000 Intake Total 480 300 200 Output Total Balance 480 300 200 Intake, Oral 480 300 200 Physical Exam Other Physical Findings: She appears comfortable in no acute distress on nasal oxygen Lungs decreased breath sounds at the left base Heart regular rhythm with no murmur Results Last 24 Hours of Lab Results: Laboratory Tests 07/03 700 Hematology CBC w Diff NO MAN DIFF REQ WBC (4.8 - 10.8 /CUMM) 8.7 RBC (4.20 - 5.40 /CUMM) 3.56 L Hgb (12.0 - 16.0 G/DL) 11.8 L Hct (37 - 47 %) 35.3 L MCV (81.0 - 99.0 FL) 99.0 MCH (27.0 - 31.0 PG) 33.1 H MCHC (33.0 - 37.0 G/DL) 33.5 RDW (11.5 - 14.5 %) 13.0 Plt Count (130 - 400 /CUMM) 289 MPV (7.4 - 10.4 FL) 7.7 Gran % (42.2 - 75.2 %) 79.4 H Lymphocytes % (20.5 - 51.1 %) 7.2 L Monocytes % (1.7 - 9.3 %) 11.2 H Eosinophils % (0 - 5 %) 1.9 Basophils % (0.0 - 2.0 %) 0.3 Absolute Granulocytes (1.4 - 6.5 /CUMM) 6.9 H Absolute Lymphocytes (1.2 - 3.4 /CUMM) 0.6 L Absolute Monocytes (0.10 - 0.60 /CUMM) 1.0 H Absolute Eosinophils (0.0 - 0.7 /CUMM) 0.2 Absolute Basophils (0.0 - 0.2 /CUMM) 0 Toxicology Vancomycin Trough (10.0 - 20.0 ug/mL) < 5.0 L Last 24 Hours of Jake Results: Sputum culture July 01 positive for Staph aureus and yeast Blood cultures 2 June 29 negative Assessment/Plan ID Impression: Overall improved, with temperatures remaining normal and white blood cell count also now normal, on Vancomycin, Day 4 of treatment for MRSA pneumonia, status post recent bronchoscopy, with biopsies negative for malignancy. Suggestion: 1. Continue Vancomycin but, upon discharge, can change to Clindamycin 300 mg p.o. every 8 hours to complete a 10 day course of treatment (until July 10)
[2017-07-03] MEDS ORDERED: CLINDAMYCIN HC300 M1 PO ×2 (15:28→15:29)
--- NOTE | 2017-07-03 15:32 | Patient Discharge Instructions ---
Discharge Instructions General Discharge Information You were seen/treated for: MRSA Pneumonia Special Instructions: -Please follow up with your primary care doctor after discharge -please follow up with your lung doctor after discharge -please finish antibiotic course as directed -please get CBC done on 07/05 for monitoring of blood numbers Diet Continue normal diet: Yes Activity Activity Self Limited: Yes Acute Coronary Syndrome Inclusion Criteria At DC or during hospital stay patient has or had the following: ACS DIAGNOSIS No Discharge Core Measures Meds if any: Prescribed or Continued at Discharge Meds if any: NOT Prescribed or Continued at Discharge Congestive Heart Failure Inclusion Criteria At DC or during hospital stay patient has or had the following: CHF DIAGNOSIS No Discharge Core Measures Meds if any: Prescribed or Continued at Discharge Meds if any: NOT Prescribed or Continued at Discharge Cerebrovascular accident Inclusion Criteria At DC or during hospital stay patient has or had the following: CVA/TIA Diagnosis No Discharge Core Measures Meds if any: Prescribed or Continued at Discharge Meds if any: NOT Prescribed or Continued at Discharge Venous thromboembolism Inclusion Criteria VTE Diagnosis No VTE Type NONE VTE Confirmed by (Test) NONE Discharge Core Measures - Per Current guidelines, there needs to be overlap - treatment for the first 5 days of Warfarin therapy. - If discharged on Warfarin prior to 5 days of - overlap therapy, the patient will need to be - assessed for post discharge needs including - *Post discharge parental anticoagulation - *Warfarin and/or parental anticoagulation education - *Follow up date to check INR post discharge At least 5 days overlap therapy as Inpatient No Meds if any: Prescribed or Continued at Discharge Note: Overlap Therapy is Warfarin and Anticoagulant Meds if any: NOT Prescribed or Continued at Discharge
== END 2017-07-03 16:35 | DRG 177 ==
LOC: ERH 18:15 → 2NA 22:49 → ERHI 22:49 → ENRESERV 06-30 00:07 → 2NA 06-30 01:10 → ENTRNSPT 07-03 16:19 → EDTRNSPTSTS 07-03 16:33 → 2NA 07-03 16:35 → CMPTRNSPT 07-03 16:53
PROVIDERS: Internal Medicine; Physician Assistant Medical; Student in an Organized Health Care Education/Training Program
DX: J15.212 Pneumonia due to Methicillin resistant Staphylococcus aureus (principal); J96.01 Acute respiratory failure with hypoxia; E87.1 Hypo-osmolality and hyponatremia; J44.0 Chronic obstructive pulmonary disease with (acute) lower respiratory infection; R04.2 Hemoptysis; I48.0 Paroxysmal atrial fibrillation; Z79.01 Long term (current) use of anticoagulants; R91.1 Solitary pulmonary nodule; Z88.8 Allergy status to other drugs, medicaments and biological substances; F17.210 Nicotine dependence, cigarettes, uncomplicated; I10 Essential (primary) hypertension
CPT/HCPCS: 2NAP; 84133; 84300; ERO; 36415; 36592; 71045; 81003; 82436; 82570; 87040; 87070; 87449; 87450; 93005; 93010; 96374; J0131; J0456; J0696; J3370; J3490; J7040